=== PATIENT | male | born 1935 | race Caucasian/White ===

== ENCOUNTER 2024-02-15 19:25 | Observation (INO) | payer MEDICARE, BC, SELFPAY ==
[2024-02-15 14:50] VITALS: BP 137/84
[2024-02-15 16:03] VITALS: BP 130/82
--- NOTE | 2024-02-15 17:18 | ED.GENMED ---
History of Present Illness
General
Chief Complaint: Fall
Source: patient and family
Time Seen by Provider: 02/15/24 17:02
History of Present Illness
History of Present Illness:
88-year-old male presents emergency department in the presence of his daughter and son-in-law with whom he lives. Patient was at a vacation home at the [place], sleeping in a high bed after having several drinks, and fell out of bed on
evening. Family heard him fall, came to his aid, helped him get back up, assisted him to the bathroom, put him back to bed. Daughter did frequent checks on him throughout the night without incident. He woke the next morning without any
complaints acting his usual self. Throughout the weekend he was asymptomatic. Then, this morning approximately 5 AM, he tripped over a gate at a doorway that he forgot was there, causing him to hit his head, without loss of consciousness. He
reports a mild headache in the frontal area that is nearly resolved at this time. He denies associated neck pain, nausea, vomiting, numbness, tingling, focal weakness, diplopia. However, he does report feeling a little 'foggy'. He also notes a
history of a 'bad lens' in his left eye with waxing and waning intensity of difficulty seeing clearly associated with slight blurriness, which seems to be slightly worse today.
Past History
Past History
ED Past Medical History: GERD and HTN
ED Past Surgical History: Appendectomy, Cholecystectomy, Tonsilectomy and Other (eye)
Social History
Tobacco: Non-smoker
Alcohol: Occasional
Drug: None
Personal:
Living: with family
Phy Exam
Physical Exam
Physical Exam:
GENERAL: Alert , in no apparent distress
EYE: pupils reactive, right pupil slightly asymmetric but chronic and baseline postsurgery, no objective photophobia, EOMI, no nystagmus, visual treadwell intact throughout. No hyphema noted. There is a small amount of bruising noted at the superior
aspect of the right eyelid without laceration, bleeding, swelling or other abnormalities.
NECK: Supple, no significant adenopathy, no midline tenderness.
ENT: o/p clr, mmm, no tenderness to palpation of periorbital area, with the exception of eyelid as described no signs of head or facial injury noted on exam, no orona, no raccoon, etc.
CARDIAC: Regular rate and rhythm .
LUNGS: Clear breath sounds bilaterally, no acute respiratory distress, no wheezes/rales/rhonchi
ABDOMEN: Soft, without focal tenderness, no r/g, no cvat
NEUROLOGICAL: Alert and oriented, no focal neuro deficits, cyadmt-qn-aofs normal, motor 5 out of 5, sensory intact, cranial nerves II through XII intact
SKIN: Warm and dry, skin intact.
MUSCULOSKELETAL: No edema, well perfused.
PSYCH: Normal and appropriate interaction.
Course
Orders/Labs/Results
Orders:
Orders
02/15/24 14:[address] [CT Head W/o Iv Contrast] Urgent
Comment:
Reason For Exam: fall
02/15/24 19:11
Admit/Transfer Patient As Directed
Co-Sign Provider:
Level of Care: Observation services
Assign to:: Medical/Surgical
Physician / Group: hospitalist
Diagnosis: subdural hematoma
PRN Pain Medication Management As Directed
May give lesser potent ordered pain med per pt: Yes
preference::
Protocol:: Medication orders for pain may be administered in a
manner that supports deferring to patient preference
when the pt is:
- Requesting an ordered lesser potent pain medication.
Least to most potent pain medications are defined
as: acetaminophen < NSAID < tramadol < opioids
(morphine, oxycodone, hydromorphone).
- Requesting a lesser dose of the same medication IF
ORDERED.
- Requesting a less intrusive route of administration
if both routes are prescribed by the provider (PO <
IV).
02/15/24 19:12
Code Status As Directed
Resuscitation Status: Full Code
02/15/24 20:00
Famotidine [Pepcid] 40 mg PO BID
02/15/24 22:00
Gabapentin [Neurontin] 300 mg PO TID
02/16/24 07:00
Levothyroxine [Synthroid] 150 mcg PO DAILY AT 0700
02/16/24 08:00
Amlodipine [Norvasc] 5 mg PO DAILY
Cyanocobalamin [Vitamin B-12] 1,000 mcg PO DAILY
Pantoprazole [Protonix] 40 mg PO DAILY
Rosuvastatin Calcium [Crestor] 5 mg PO DAILY
cholecalciferol (vitamin D3) 1,000 mcg PO DAILY
Vital Signs
Initial and Last Documented VS:
Initial Vital Signs
Temp Pulse Resp BP Pulse Ox
98.4 F 67 18 137/84 98
02/15/24 14:50 02/15/24 14:50 02/15/24 14:50 02/15/24 14:50 02/15/24 14:50
Last Documented Vital Signs
Temp Pulse Resp BP Pulse Ox
98.4 F 64 13 130/82 98
02/15/24 14:50 02/15/24 16:03 02/15/24 16:03 02/15/24 16:03 02/15/24 19:03
*Critical Care Note
Total Time (30-74mins, 75-104mins- exclusive of procedures): Not Applicable
Update Note
Update Note:
Patient presents to the Emergency Department with __headache, foggy feeling status post fall
Number and Complexity of Problems Addressed at the Encounter
� Chronic conditions affecting care:
� Acute Exacerbation and/or Progression of Chronic Illness:
� Differential Diagnosis includes: But not limited to concussion, intracranial bleed/subdural, etc.
Amount and/or Complexity of Data to be Reviewed and Analyzed
� I performed an independent evaluation of and my interpretation is:
EKG:
CT:Prominence of subarachnoid cisterns overlying both cerebral hemispheres, greatest in the frontal lobes. This is most likely on the basis of atrophy.
Bilateral subdural hygromas could be considered as a differential consideration, particularly as there is no comparison examination available. No evidence for significant mass effect, as the sulci remain well-defined.
Depending on clinical symptoms, consideration could be given to follow-up CT or MRI evaluation to assess for interval change.
2 mm metallic density within the soft tissues anterior to the midline frontal sinus, probably a small metallic foreign body.
Xrays:
Laboratory Studies:
Other:
� Review of other/old records reveals:
� Clinical information was obtained by an independent historian: Daughter and son-in-law who are at bedside
� Prescriptions/Medications Considered but not given:
� Further testing considered but not performed:
Risk of Complications and/or Morbidity or Mortality of Patient Management
� Social determinants of health affecting care:
� Discussion with other providers (PCP, Hospitalists, Consultants, etc):
� Escalation of care including admission/observation vs risk of discharge considered: No change to patient's gait, patient not confused, no complaints of headache at this time. Exam as noted. CT noted, case discussed with .
Jamie Paulson from neurosurgery at [facility] has reviewed patient's CT.
7:22 PM after consultation with Dr. Jamie Paulson including review of CAT scan that I sent to him via [facility] text, he suspects a very tiny acute on chronic subdural, recommendation is observation overnight with repeat CT in 6 hours. Case discussed
with hospitalist and family and patient updated. Patient is neurologically intact. I did recommend to family that upon discharge he see [facility] promptly regarding his left eye symptoms. Incidental small metal noted in the soft tissue likely
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
ED Attending Note
-
Portions of this chart may have been created with voice recognition software.� Occasional wrong word or��sound alike� substitutions may have occurred due to the inherent limitations of voice recognition software.
Discharge Plan
Departure
Patient Disposition: Admit
Date of Disposition: 02/15/24
Time of Disposition: 19:23
Admit to: Telemetry
Presentation/result/management discussed w/ accepting MD/DO: Hospitalist
Discharge Problem:
Acute subdural hematoma
Prescriptions:
No Action
pantoprazole 40 mg tablet,delayed release (DR/EC)
40 mg PO DAILY
gabapentin 300 mg capsule
300 mg PO TID
rosuvastatin 5 mg tablet
5 mg PO DAILY
famotidine 40 mg Tablet
40 mg PO BID
cyanocobalamin (vitamin B-12) [Vitamin B-12] 1,000 mcg Tablet
1,000 mcg PO DAILY
levothyroxine [Synthroid] 150 mcg Tablet
150 mcg PO DAILY AT 0700
cholecalciferol (vitamin D3) 100 mcg (4,000 unit) Capsule
1,000 mcg PO DAILY
amlodipine [Norvasc] 5 mg tablet
5 mg PO DAILY Qty: 30 0RF
Referrals:
Hai Lee MD [Family Provider] -
Interventions
Interventions:
*Risk Screen - Suicide Last Done: 02/15/24 14:50
*General Assessment Last Done: 02/15/24 14:50
*Neglect/Abuse Screening Last Done: 02/15/24 14:50
*ED COVID-19 Vaccine History Last Done: 02/15/24 16:03
ED-Musculoskeletal Assessment Last Done: 02/15/24 16:03
ED- Neurological Assessment Last Done: 02/15/24 16:03
ED-Skin Assessment Last Done: 02/15/24 16:03
Discharge Date and Time
Print Language: FRENCH
[2024-02-15 19:07] VITALS: BMI 21.9
--- NOTE | 2024-02-15 19:11 | EDRN ---
Report received, patient aware results are back and waiting for to come speak with them about results and plan.
--- NOTE | 2024-02-15 19:19 | EDRN ---
Dr. Alfaro at bedside with patient going over plan for admission.
--- NOTE | 2024-02-15 19:41 | HPS.HSE ---
Family Physician
-
Family Physician: Hai Lee
Chief Complaint
-
Fall
History of Present Illness
This is a 88-year-old with past medical history of hypertension, GERD, hyperlipidemia, hypothyroid who presents to the emergency department following 2 falls.
Patient reported having more than usual amount of alcohol 2 nights ago. When he went to bed he ended up rolling on the bed and falling to the floor. He reports that he was on a bed that was not his usual pain and was at a higher height. Family
had denies and came to see him. They evaluated him and he was neurologically intact denied having headache nausea or vomiting and was able to perform his usual activities. He went back to bed and was otherwise asymptomatic. Later on the patient
tripped on an object in the room and fell again. This time he complained of some headache and was brought to the emergency department. Headache improved by time he arrived to the emergency department but it reoccurred again while in the ED.
Patient is not on any anticoagulations or antiplatelet therapy.
In the emergency department he was afebrile hemodynamically stable and in no acute distress. He had a CT of the head. There was bilateral subdural hygromas could be considered as a differential consideration, particularly as there is no comparison
examination available. No evidence for significant mass effect, as the sulci remain well-defined. 2 mm metallic density within the soft tissues anterior to the midline frontal sinus, probably a small metallic foreign body. This case was discussed
with neurosurg and recommended a follow up CT in 6 hours.
Medical History
Past Medical History
Past Medical History: Reports GERD, HTN, Hypercholesterolemia and Hypothyroidism
Additional Past Medical History:
Dementia
Past Surgical History: Reports None and Other
Social History
Tobacco: Non-smoker
Alcohol: Occasional
Drug: None
Personal:
Living: With Family
Employment: Retired
Family History
Family History: Not pertinent
Allergies / Home Medications
Allergies reflects when Allergies were last updated in [employer] [facility].
Home Medications with original date entered in [employer] [facility]
Allergy/Medication List:
Allergies
Allergy/AdvReac Type Severity Reaction Status Date / Time
milk Allergy Mild Does not Verified 02/15/24 14:50
settle
well in
stomach
aspirin Allergy Nausea / Verified 02/15/24 14:50
Vomiting
Home Medications
Lexapro 10mg tablet, 10mg PO Daily
levothyroxine 150 mcg tablet (Synthroid) 150 mcg PO DAILY AT 0700 Thyroid 08/18/22
pantoprazole 40 mg tablet,delayed release 40 mg PO DAILY Gastrointestinal issue 08/18/22
rosuvastatin 5 mg tablet 5 mg PO DAILY High cholesterol 08/18/22
amlodipine 5 mg tablet (Norvasc) 5 mg PO DAILY #30 tabs 08/20/22
Review of Systems
-
History Source: Patient
Constitutional: Reports No Symptoms
EENT: Reports No Symptoms
Respiratory: Reports No Symptoms
Cardiac: Reports No Symptoms
Abdomen/GI: Reports No Symptoms
: Reports No Symptoms
Musculoskeletal: Reports No Symptoms
Skin: Reports No Symptoms
Neurological: Reports Headache
Endocrine: Reports No Symptoms
Hematologic/Lymphatic: Reports No Symptoms
Psych: Reports No Symptoms
Physical Exam
Vital Signs
Vital Signs
Temp Pulse Resp BP Pulse Ox
98.4 F 64 13 130/82 98
02/15/24 14:50 02/15/24 16:03 02/15/24 16:03 02/15/24 16:03 02/15/24 19:03
Physical Exam
HEENT: NormoCephalic, Anicteric, Moist mucous membranes, Atraumatic and Other (anisocoria, non-reactive right pupil)
Respiratory: Clear
Cardiac: S1/S2 and Regular Rhythm
Breast: Deferred by me
GI: Soft, Non Tender, Non Distended and Normal Bowel Sounds
Rectal: Deferred by Provider
Genito-urinary: Deferred by me
Musculoskeletal: No Clubbing, No Cyanosis and No Edema
Skin: Warm
Neuro: AO x 3, No Motor Deficits, Nonfocal/grossly intact and No Sensory Deficits
Hematologic/Lymphatic: No Lymphadenopathy
Psych: Calm
Data Reviewed
-
CT Scan: Report Reviewed by me
Impression/Plan
-
IMPRESSION:
Mechanical fall with possible small subdural hematoma. Patient is not on any anticoagulation. Does not take aspirin. He is neurologically intact. He denies any nausea or vomiting. Currently does have a headache.
PLAN:
1. Fall - Possible SDH vs hygroma. 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 No focal deficits. Anisocoria with non-reacting, mid-dilated right pupil.
- admit to med/surg
- repeat CT scan in 6 hours
- no AC
- monitor for nausea/vomiting/headache
2. Anisocoria - Patient with known cataracts and poor vision in both eyes, stating that he has more blurry vision in the left eye. Recent cataract surgery on the right eye. No diploplia. EOMI. No conjunctivitis or obvious cornial anomally.
Suspect secondary to prior surgery.
- will obtain facial bone CT with repeat head CT.
- f/u with outpatient opthalmology
3. HTN/HLD
- continue amlodipine & rosuvostatin
4. Hypothyroid
- continue levothyroxine
5. Memory loss - progressive over the last 2 years, patient and pmd aware
- follow up as outpatient
DVT PPX - SCDs
Code Status - DNR
--- NOTE | 2024-02-15 20:01 | PHANOTE ---
med rec note- patient having trouble with med names patient has no ecw just pharmacy records will following with family and pcp friday
--- NOTE | 2024-02-15 20:01 | EDRN ---
Patient provided with a lunchbox to eat and a urinal if he needs, aware he will be going upstairs shortly, report was sent.
--- NOTE | 2024-02-15 20:40 | PTCARENOTE ---
Pt rec'd to floor from ED awake and alert. Able to ambulate from hallway to bed w/o difficulty; uses SPC. Denies any dizziness. Gait steady. Denies h/a or other pain at this time. Recalls events leading up to hospitalization, but is very forgetful
and not able to recall current year or current location, where he lives, etc. Voices frustration over memory loss.
[2024-02-15 20:46] VITALS: BP 166/77; BMI 21.4
[2024-02-15] MEDS: TYLENOL 1000 MG PO (21:20)
--- NOTE | 2024-02-15 21:30 | PTCARENOTE ---
Pt instructed to get OOB only w/assistance and showed use of call triplett. Pt has demonstrated severe memory loss and has not recalled all instructions given to him, therefore bed alarm applied to bed for safety.
[2024-02-15 23:32] VITALS: BP 126/82
--- NOTE | 2024-02-16 00:45 | PTCARENOTE ---
Zarina RIVAS notified of results of repeat Ct scan. Labs ordered for am.
[2024-02-16] MEDS: SYNTHROID 150 MCG PO (06:17)
[2024-02-16 07:35] VITALS: BP 149/77
[2024-02-16] MEDS: LEXAPRO 10 MG PO (07:48)
[2024-02-16] MEDS: CRESTOR 5 MG PO (07:48)
[2024-02-16] MEDS: PROTONIX 40 MG PO (07:48)
[2024-02-16] MEDS: NORVASC 5 MG PO (07:48)
[2024-02-16 08:24] LABS: Hemoglobin 13.7 g/dL (13.0-18.0); Mean Corp Hgb Conc. 34.3 g/dL (33.0-37.0); Mean Corpuscular Hgb 29.8 pg (27.0-31.0); Mean Corpuscular Volume 87.1 fL (80.0-94.0); Mean Platelet Volume 9.7 fL (7.4-10.4); Platelet Count 225 10^3/uL (130-400); Red Blood Cell Count 4.59 10^6/uL (4.70-6.10); Red Cell Dist. Width 13.7 % (11.5-14.5); White Blood Cell Count 5.7 10^3/uL (4.8-10.8)
[2024-02-16 09:46] LABS: Blood Urea Nitrogen 20 mg/dl (9-20); Calcium 10.6 mg/dl (8.4-10.2); Carbon Dioxide 25 mmol/L (22-30); Chloride 102 mmol/L (98-107); Estimated Creatinine Clearance 50 ml/min; Glucose 117 mg/dl (70-99); Potassium 4.4 mmol/L (3.5-5.1); eGFR > 60.00
[2024-02-16 10:01] LABS: Sodium 140 mmol/L (135-145)
[2024-02-16 10:35] VITALS: BP 102/68
[2024-02-16] MEDS: TYLENOL 650 MG PO (10:35)
[2024-02-16 12:27] VITALS: BMI 21.4
--- NOTE | 2024-02-16 14:36 | W.PN.HOSP.TC ---
Today's Communication/Plan
-
Follow-up neurosurgery recommendations
PT/OT eval
Neurochecks
Assessment / Plan
Assessment / Plan
#Acute subdural hematoma
#Fall at home times
-Repeat CT after 6 hours showed 2 mm right frontotemporal SDH
-No signs of midline shift or other complications related to bleed
-Remains neuro cognitively intact
-Holding chemical DVT prophylaxis
-Continue with neurochecks
-Neurosurgery consulted
-Consult PT/OT
#Anisocoria
-Has a stable pupillary defect on the right
-Will need to follow-up outpatient with ophthalmology
#HTN
-No known hypertensive systemic disease
-Home medications include amlodipine
#HLD
-No known ASCVD history, currently on rosuvastatin
#Hypothyroidism
-Home medication includes levothyroxine
-Appears stable
#Memory loss
-Should have follow-up as outpatient for neurocognitive eval
DVT prophylaxis: SCDs
Diet: regular
CODE STATUS: DNR
Anticipated Discharge: 24 - 48 hours
Subjective/Interval History
-
Date of Service: February 16, 2024
Objective Data
-
Labs:
Laboratory Results
02/16/24 02/16/24
07:35 09:18
WBC 5.7
Hgb 13.7
Hct 40.0
Plt Count 225
Sodium Cancelled 140
Potassium Cancelled 4.4
Chloride Cancelled 102
Carbon Dioxide Cancelled 25
BUN Cancelled 20
Creatinine Cancelled 0.9
Glucose Cancelled 117 H
Calcium Cancelled 10.6 H
Vital Signs:
Vital Signs
Temp Pulse Resp BP Pulse Ox
97.8 F 64 18 102/68 98
02/16/24 10:35 02/16/24 10:35 02/16/24 10:35 02/16/24 10:35 02/16/24 12:43
I&O
02/15/24 02/16/24 02/17/24
06:59 06:59 06:59
Intake Total 0 / 0
Balance 0 / 0
[2024-02-16 15:15] VITALS: BP 120/78
--- NOTE | 2024-02-16 15:25 | CON.NS ---
Chief Complaint
-
s/p fall
History of Present Illness
This is an 88 y/o M who presented to the ED for evaluation after he tripped and hit his head. He reports he was at the [facility] this past week and was sleeping in a higher bed than normal. He fell out of bed about 3 days ago after having a
little too much to drink. Family heard him and went to evaluate. He did not have LOC and his family checked on him through the night. He did not have any further issues. Yesterday am, he tripped over a gate in the doorway that he forgot was there
and hit his head on the door frame. He had a mild headache after hitting his head and felt a little foggy. His family brought him in for evaluation.
Patient seen and examined. Grandson at bedside. He states he has an occasional headache since the fall out of bed. He and his grandson deny him taking any AC/AP. He does admit he will have too much to drink at times. He denies any new N/V, weakness,
numbness/tingling.
Review of Systems
-
A 10 point ROS including HEENT,cardiac,respiratory,GI,, integumentary, heme/onc,endocrine, psych, musculoskeletal has been performed and is negative except for pertinent positives as noted in the HPI above.
Medical History
Past Medical History
Additional Past Medical History:
Past Medical History
Past Medical History: Reports GERD, HTN, Hypercholesterolemia and Hypothyroidism
Additional Past Medical History:
Dementia
Past Surgical History: Reports None and Other
Social History
Tobacco: Non-smoker
Alcohol: Occasional
Drug: None
Personal:
Living: With Family
Employment: Retired
Family History
Family History: Reviewed & Not Pertinent
Medication and Allergies
Home Medications
Home Medications
�Medication �Instructions �Recorded
levothyroxine 150 mcg tablet 150 mcg PO DAILY AT 0700 Thyroid 08/18/22
(Synthroid)
pantoprazole 40 mg tablet,delayed 40 mg PO DAILY Gastrointestinal 08/18/22
release issue
rosuvastatin 5 mg tablet 5 mg PO DAILY High cholesterol 08/18/22
amlodipine 5 mg tablet (Norvasc) 5 mg PO DAILY #30 tabs 08/20/22
escitalopram oxalate 10 mg tablet 10 mg PO DAILY Depression 02/15/24
(Lexapro)
Allergies
Allergies
Allergy/AdvReac Type Severity Reaction Status Date / Time
milk Allergy Mild Does not Verified 02/15/24 14:50
settle
well in
stomach
aspirin Allergy Nausea / Verified 02/15/24 14:50
Vomiting
Physical Exam
-
Exam:
Patient Awake, alert and Oriented xs 3
CN 2-12 grossly intact
bruising on left side of face and arm
speech: clear/fluent
motor: DE LA O xs 4, absent drift bilaterally
sensation intact to crude touch
no swelling/edema
Imaging:
CT Head imaging and report personally reviewed
IMPRESSION:
Probable small subdural hematoma in the right frontal temporal region, measuring 2 mm in thickness, stable from earlier examination of February 15, 2024.
Prominence of extra-axial CSF overlying both cerebral hemispheres, greatest in the frontal lobes, stable from earlier exam. This could be on the basis of atrophy, but could also represent stable subdural hygromas.
There is no midline shift.
Problems
-
Problem Status Onset Code
Acute subdural hematoma S06.5XAA
Assessment / Plan
-
88 y/o M s/p fall with small right SDH stable xs 2 CT scans
--imaging reviewed by and discussed with attending. No acute neurosurgical intervention indicated
--repeat CTH for change in exam only
--follow up in [address] head prior to appt.
--discussed results and recommendations with patient's grandson at bedside. All questions anwered.
--Neurosurgery to sign off
--okay for dvt ppx
--patient discussed with Dr. Mcdonald
--- NOTE | 2024-02-16 17:20 | CM ---
Alert awake oriented patient who lives with his dgt Nataly who lives in a 1 story home with 1 step to enter and bed and bathroom on first floor. He is independent in all activities of daily living.He was offered VN he declined need.[facility] letter
given explained signed on chart.
No VN hx / No SNF history
Pharmacy [facility]
PCP DR Lee
PLAN Home Declined VN
[2024-02-16 23:09] VITALS: BP 141/82
[2024-02-17] MEDS: SYNTHROID 150 MCG PO (05:59)
[2024-02-17 07:07] VITALS: BP 128/78
--- NOTE | 2024-02-17 07:26 | PTCARENOTE ---
Patient became agitated and angry x 2 this shift regarding bed alarm and ambulating with assistance. Able to reorient and redirect to have patient agree to utilize fall precaution protocols. Bed alarm in place.
[2024-02-17] MEDS: CRESTOR 5 MG PO (09:03)
[2024-02-17] MEDS: LEXAPRO 10 MG PO (09:04)
[2024-02-17] MEDS: NORVASC 5 MG PO (09:04)
[2024-02-17] MEDS: PROTONIX 40 MG PO (09:04)
[2024-02-17] MEDS: TYLENOL 650 MG PO (09:46)
[2024-02-17 09:49] VITALS: BP 156/82; PULSE 67; O2SAT 99
[2024-02-17 09:53] VITALS: BP 156/82; PULSE 63; O2SAT 98
--- NOTE | 2024-02-17 11:41 | W.PN.HOSP.TC ---
Today's Communication/Plan
-
Discharge
Assessment / Plan
Assessment / Plan
#Acute subdural hematoma
#Fall at home times
-Repeat CT after 6 hours showed 2 mm right frontotemporal SDH
-No signs of midline shift or other complications related to bleed
-Remains neuro cognitively intact
-Holding chemical DVT prophylaxis
-Continue with neurochecks
-Neurosurgery consulted
-Consult PT/OT
#Anisocoria
-Has a stable pupillary defect on the right
-Will need to follow-up outpatient with ophthalmology
#HTN
-No known hypertensive systemic disease
-Home medications include amlodipine
#HLD
-No known ASCVD history, currently on rosuvastatin
#Hypothyroidism
-Home medication includes levothyroxine
-Appears stable
#Memory loss
-Should have follow-up as outpatient for neurocognitive eval
DVT prophylaxis: SCDs
Diet: regular
CODE STATUS: DNR
Anticipated Discharge: Today
Subjective/Interval History
-
Date of Service: February 17, 2024
Seen and examined at bedside. No acute events reported overnight. AFVSS this morning.
He mentions slight blurriness/darkness to vision from the right eye that is different from yesterday. Ordered a repeat CT head that did not show any changes to SDH or otherwise
He otherwise denies all acute complaints
Objective Data
-
Vital Signs:
Vital Signs
Temp Pulse Resp BP Pulse Ox
98.2 F 64 22 128/78 97
02/17/24 07:07 02/17/24 07:07 02/17/24 07:07 02/17/24 07:07 02/17/24 07:07
I&O
02/16/24 02/17/24 02/18/24
06:59 06:59 06:59
Intake Total 0 / 0 640 / 640
Balance 0 / 0 640 / 640
Review of Systems
-
History Source: Patient
All other systems: Reviewed and negative
Physical Exam
-
General: Well Nourished, No Apparent Distress and Comfortable
HEENT: Normocephalic, Atraumatic, Moist Mucous Membranes, PERRLA and Other (Anisocoria right pupil)
Respiratory: Clear to Auscultation and Wheezes
Cardiac: Regular Rhythm and S1/S2
GI: Soft, Nontender, Nondistended and Normal Bowel Sounds
Musculoskeletal: No Clubbing, No Cyanosis and No Edema
Skin: Warm and Dry; Negative Rash
Neuro: AO x 3, Nonfocal/Grossly Intact and Central Nerve's Intact
Psych: Calm
Data Reviewed
-
CT Scan: Report Reviewed by me and Discussed with Patient
Labs: Labs Reviewed by me and Discussed with Patient
--- NOTE | 2024-02-17 11:46 | W.DCSUMMARY ---
Discharge Summary
Discharge Data
Date of Admission: 02/15/24
Date of Discharge: 02/17/24
-
Pending Results: No
Hospital Course
88-year-old male with GERD, hypothyroidism, HTN, HLD, alcohol use that presented after 2 mechanical falls at home while using alcohol. On arrival CT head showed potential small 2 mm right-sided subdural hematoma at the frontoparietal region. CT
scan x 2 were obtained subsequently that did not show any signs of worsening. No evidence of midline shift, mass effect or other acute abnormality seen on imaging. Was evaluated by neurosurgery who recommended outpatient follow-up in their office.
PT/OT evaluated patient, determined no home needs were necessary.
Patient discharged with neurosurgery referral. Provided a prescription for CT head without contrast that should be obtained prior to office visit with neurosurgery
Discharge Plan
-
Patient Disposition: Home (Routine Discharge)
Discharge Diagnosis/Procedures: Subdural hematoma
Mechanical fall at home
Condition: Good
Diet: No restrictions
Activity: No restrictions
Additional Activity: Caution for falls if consuming alcohol
Driving Restrictions: No driving for 24 hours
Bathing Restrictions: None
Others Tests: CT head- obtain CT head prior to appointment.
Activity Restrictions/Additional Instructions:
You may take Tylenol for headache. Do not take NSAIDs (Aleve, motrin, advil, ibuprofen, aspirin) until seen in follow up by Neurosurgery.
Instructions: Subdural Hematoma (DC)
Referrals:
Hunter Mcdonald, [Active] - (Follow up in ~2 weeks regarding right subdural hematoma. Obtain CT head prior to appointment. )
Hai Lee MD [Family Provider] -
Additional Discharge Medication Instructions: No medication changes
Prescriptions:
Continued
pantoprazole 40 mg tablet,delayed release (DR/EC)
40 mg PO DAILY
rosuvastatin 5 mg tablet
5 mg PO DAILY
levothyroxine [Synthroid] 150 mcg Tablet
150 mcg PO DAILY AT 0700
amlodipine [Norvasc] 5 mg tablet
5 mg PO DAILY Qty: 30 0RF
escitalopram oxalate [Lexapro] 10 mg Tablet
10 mg PO DAILY
Discharge Orders:
Discharge Patient (As Directed); Ordered 02/17/24
Ordered By: Gaurav Leung
Discharge Date and Time
Print Language: UKRAINIAN
[2024-02-17 12:42] VITALS: BP 120/80
--- NOTE | 2024-02-17 12:56 | CM ---
MD entered order for discharge.
Pt said he was ready for dc.
Daughter here to drive him home.Lives with dgt.
Offered vn he declined need.
PLAN Home no needs
--- NOTE | 2024-02-17 13:00 | PTCARENOTE ---
rn health service coordinator- Daughter and patient state that he takes flomax for his prostate. It was not on his dc/ instructions. Demar texted as per Dr Leung who indicated that it was not on his home list, but indicated that patient should continue
[employer] at home.
== END 2024-02-17 12:51 | disposition home or self-care (01) ==
LOC: 4 EAST ACU 19:25
PROVIDERS: Registered Nurse; ADMITTING PHYSICIAN Internal Medicine; ATTENDING PHYSICIAN Internal Medicine; EMERGENCY PHYSICIAN Emergency Medicine; FAMILY PHYSICIAN Family Medicine; OTHER PHYSICIAN Neurological Surgery
DX: S06.5X0A Traumatic subdural hemorrhage without loss of consciousness, initial encounter (principal); R51.9 Headache, unspecified; K21.9 Gastro-esophageal reflux disease without esophagitis; H57.02 Anisocoria; H53.8 Other visual disturbances; I10 Essential (primary) hypertension; W06.XXXA Fall from bed, initial encounter; Y93.89 Activity, other specified; Y92.003 Bedroom of unspecified non-institutional (private) residence as the place of occurrence of the external cause; E03.9 Hypothyroidism, unspecified; E78.00 Pure hypercholesterolemia, unspecified; Z88.6 Allergy status to analgesic agent; Z91.011 Allergy to milk products; Z79.890 Hormone replacement therapy; Z66 Do not resuscitate; Z90.49 Acquired absence of other specified parts of digestive tract
CPT/HCPCS: 70450; 80048; 85027; 97116; 97163; 97167; 99285; G0378

== ENCOUNTER → 2024-02-25 07:00 | Outpatient (REF) | payer MEDICARE, BC, SELFPAY | LOC: RAD 07:00 | PROVIDERS: ATTENDING PHYSICIAN Internal Medicine; FAMILY PHYSICIAN Family Medicine | DX: I62.01 Nontraumatic acute subdural hemorrhage (principal) | CPT/HCPCS: 70450 ==

== ENCOUNTER 2024-03-19 10:53 | Emergency (ER) | payer MEDICARE, BC, SELFPAY ==
[2024-03-19 10:56] VITALS: BP 128/74
[2024-03-19 11:13] VITALS: BMI 21.6
[2024-03-19 11:16] VITALS: BP 147/83
[2024-03-19 11:41] LABS: INR 1.03; PT 13.8 Sec (11.4-14.6)
[2024-03-19 11:42] LABS: Glucose - Point of Care 86 mg/dl (70-99)
[2024-03-19 11:46] LABS: % Basophils 0.8 % (0-2); % Eosinophils 1.4 % (0-6); % Immature Granulocytes 0.3 % (0-0.5); % Lymphocytes 35.9 % (20.5-51.1); % Monocytes 8.6 % (1.7-9.3); Absolute Basophils 0.1 10^3/uL (0-0.2); Absolute Eosinophils 0.1 10^3/uL (0-0.7); Absolute Lymphocytes 2.3 10^3/uL (1.2-3.4); Absolute Monocytes 0.6 10^3/uL (0.1-0.6); Absolute Neutrophils 3.4 10^3/uL (1.4-6.5); Hematocrit 43.1 % (39.0-52.0); Hemoglobin 14.4 g/dL (13.0-18.0); Mean Corp Hgb Conc. 33.4 g/dL (33.0-37.0); Mean Corpuscular Hgb 30.4 pg (27.0-31.0); Mean Corpuscular Volume 91.1 fL (80.0-94.0); Mean Platelet Volume 9.1 fL (7.4-10.4); Nucleated Red Blood Cells % 0 % (-); Platelet Count 280 10^3/uL (130-400); Red Blood Cell Count 4.73 10^6/uL (4.70-6.10); Red Cell Dist. Width 13.3 % (11.5-14.5); White Blood Cell Count 6.4 10^3/uL (4.8-10.8)
[2024-03-19 11:47] LABS: ALT (SGPT) 13 U/L (0-50); AST (SGOT) 19 U/L (17-59); Albumin 4.4 g/dl (3.5-5.0); Alkaline Phosphatase 97 U/L (38-126); Blood Urea Nitrogen 18 mg/dl (9-20); Calcium 10.2 mg/dl (8.4-10.2); Carbon Dioxide 24 mmol/L (22-30); Chloride 102 mmol/L (98-107); Estimated Creatinine Clearance 43 ml/min; Glucose 102 mg/dl (70-99); Potassium 4.4 mmol/L (3.5-5.1); Sodium 138 mmol/L (135-145); Total Bilirubin 0.4 mg/dl (0.2-1.3); Total Protein 7.3 g/dl (6.3-8.2); eGFR > 60.00
[2024-03-19 12:00] VITALS: BP 102/72
--- NOTE | 2024-03-19 12:39 | CON.NEURO4 ---
Addendum entered and electronically signed by Jimbo Haynes MD 03/19/24 17:24:
Studies reviewed.
I have personally examined the patient. I reviewed and agree with the SURVEILLANCE OPERATOR's Note.
My addenda:
Awake, alert, interactive. No acute distress.
Speech intact.
Follows 2-step requests w/ difficulty. No tremor.
Extra-ocular movements grossly intact.
Facial movements full and symmetric. Hearing intact to normal conversational volume.
Normal UE movements bilaterally.
Neck: full ROM.
Chest: no dyspnea
Heart: no JVD
Ext: (-) Clubbing, (-) Cyanosis, (-) Edema
IMPRESSIONS/RECOMMENDATIONS:
Abrupt onset of gait and speech changes. Patient has had recurrent difficulty with speech changes over the last 48 hours each lasting approximately 15 minutes before resolution
Most likely secondary to fluid changes associated with known subdural hematoma as well as postconcussive syndrome. The patient's prior significant alcohol intake and potential withdrawal from same may also be producing cognitive changes leading to
symptoms
Supportive care
Patient is not on medications which need withheld meaning he is not taking antiplatelet or anticoagulant medications at this time
Continue patient's usual medication regimen
Should the patient redevelop symptomatology, return to this hospital's emergency department may be of benefit
No indication at this time for neurosurgical intervention
Patient in the future may benefit from thiamine replacement
D/W patient / family
All questions answered.
Will continue to follow patient as needed.
Original Note:
Consultation - Neurology 4
-
CONSULTING PHYSICIAN:Dr. iJmbo Hollingsworth
REFERRING PHYSICIAN: Dr. Phelps
DICTATED BY: EVELYN Harrington
DATE/TIME OF REQUEST: 03/19/2024
DATE/TIME OF CONSULTATION: 03/19/2024
Reason for Consultation: stroke alert
History of Present Illness:
This is an 88-year-old male patient with past medical hypertension, GERD, hyperlipidemia, hypothyroid who presented to the emergent department today 03/19/2024 after daughter noted changes in speech and gait. He was seen in the emergency
department in 02/15/2024 after he fell at his vacation home in [place]. He went to bed after having a few drinks and fell out of on 02/12/2024. He woke up the following morning and seemed himself. On 02/15/2024 he had additional fall and again
hit his head. Prompting his daughter to bring him to the ER. He reported a mild headache in the frontal area. He denied any neck pain, nausea, vomiting, numbness, tingling, focal weakness or diplopia. 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 He does follow-up with [facility]. On 02/15/2024 he did admit to being foggy.
CT head 02/15/2024 at 1750
Prominence of subarachnoid cisterns overlying both cerebral hemispheres, greatest in the frontal lobes. This is most likely on the basis of atrophy.
Bilateral subdural hygromas could be considered as a differential consideration, particularly as there is no comparison examination available. No evidence for significant mass effect, as the sulci remain well-defined.
Depending on clinical symptoms, consideration could be given to follow-up CT or MRI evaluation to assess for interval change.
2 mm metallic density within the soft tissues anterior to the midline frontal sinus, probably a small metallic foreign body.
CT head 02/15/2024 at 2330
Probable small subdural hematoma in the right frontal temporal region, measuring 2 mm in thickness, stable from earlier examination of February 15, 2024.
Prominence of extra-axial CSF overlying both cerebral hemispheres, greatest in the frontal lobes, stable from earlier exam. This could be on the basis of atrophy, but could also represent stable subdural hygromas.
There is no midline shift.
CT head 02/17/2024
Thin right frontal and anterior temporal subdural hematoma, stable from examination on February 15, 2024.
Prominence of extra-axial CSF overlying the hemispheres, especially in the region of frontal lobes, also stable. This may be on the basis of atrophy, although bilateral subdural hygromas are also possible.
No mass effect with no midline shift.
He was evaluated by neurosurgery who felt subdural was stable and needed follow up as an outpatient.
Repeat CT head 02/25/2024
Findings consistent with evolving subacute subdural hemorrhage.
Stable chronic hypodense collections of CSF attenuation are noted immediately adjacent to the inner table, bilaterally, left greater than right, such as chronic subdural hematoma or hygroma. Unchanged.
Today 03/18/2024, his daughter reports that he has had transient changes in speech over the past 2-3 days at night before bed. This morning his daughter witnessed patient with trouble finding his words, getting lost in the kitchen and felt his
balance was not at baseline, she felt he needed to be evaluated urgently. Symptoms have improved since arrival tot he ER. His daughter reports that he had had a decline in memory since the spring after the of his and moving in with his
daughter. She reports he has been able to complete most of his own ADL's and had been driving up until a month ago when his vision seemed to have gotten worse. He had not had any fender benders or episodes of getting lost. He denies any acute
complaints. He denies any dizziness, weakness, numbness or tingling. He denies any headache. He does admit to changes in memory.
Past Medical History: GERD, hypertension, hypothyroid, hyperlipidemia,left eye vision changes
Surgical History: Appendectomy,cholecystectomy,tonsillectomy
Family History: reviewed and non-pertinent
Social History: lives with family, , non-smoker, ETOH use socially
Allergies: see below
Home Medications: see below
Review of Symptoms:
Patient denies any fever, headache, chest pain, shortness of breath, GI or symptoms.
Vital Signs: see below
Physical Exam:
The patient is afebrile, heart sounds S1 and S2 are regular and chest is clear to auscultation bilaterally.
Neurologic Examination:
The patient is awake, alert and oriented x 3, needs . He is able to follow commands and answer most questions appropriately. There is no aphasia or dysarthria. On cranial nerve assessment, Left pupil was 1.5 mm right pupil was 2.5 mm round and
reactive to light and accommodation. Visual treadwell are full. Extraocular movements are intact. Tends to close left eye d/t blurred vision, but can open fully. Facial sensations are intact and bilaterally symmetrical, there is no facial asymmetry.
Hearing is intact bilaterally to normal conversation volume. Tongue palate and uvula are midline. Sternocleidomastoid strengths are full bilaterally. Motor strengths are 5/5 bilateral upper and lower extremities on medical research [place] scale.
There is no drift or involuntary movement noted. Deep tendon reflexes are 2+ bilateral upper and lower extremities and Babinski is absent bilaterally. Sensations of touch and temperature and vibration are intact and bilaterally symmetrical. There
was no extinction noted on double simultaneous stimulation. Coordination is intact by finger to nose bilaterally.
Lab Results: see below
Neuro Imaging: see HPI
CT head today, formal report pending
Impression:
BRENDON GARCIA is a 89 year old M who has presented to the hospital with speech and gait changes.
Differentials for the patient's presentation include:
Post-concussive syndrome
Exacerbation of underlying dementia
increased fluid d/t subdural hematoma
metabolic disturbance
Recommendations:
-CT head pending
-would benefit from outpatient MRI brain, no need for further imaging at this time
-will order labs for additional possible metabolic causes
-would benefit from outpatient neurologic evaluation and neuropsychological testing, has outpatient appointment with neurology
-will benefit from outpatient PT/OT and speech
-should follow up with neurosurgery as planned
-should avoid any NSAIDS or antiplatelets
Discussed patient care with Dr. Phelps, nursing, patient, family and Dr. Haynes
Medication and Allergies
Home Medications
Home Medications
�Medication �Instructions �Recorded
levothyroxine 150 mcg tablet 150 mcg PO DAILY AT 0700 Thyroid 08/18/22
(Synthroid)
pantoprazole 40 mg tablet,delayed 40 mg PO DAILY Gastrointestinal 08/18/22
release issue
rosuvastatin 5 mg tablet 5 mg PO DAILY High cholesterol 08/18/22
amlodipine 5 mg tablet (Norvasc) 5 mg PO DAILY #30 tabs 08/20/22
escitalopram oxalate 10 mg tablet 10 mg PO DAILY Depression 02/15/24
(Lexapro)
tamsulosin 0.4 mg capsule (Flomax) 0.4 mg PO HS 02/17/24
Allergies
Allergies
Allergy/AdvReac Type Severity Reaction Status Date / Time
milk Allergy Mild Does not Verified 02/15/24 14:50
settle
well in
stomach
aspirin Allergy Nausea / Verified 02/15/24 14:50
Vomiting
Penicillins Allergy Unknown Verified 03/19/24 11:00
Vital Signs / Labs
-
Vital Signs and Labs:
Temp Pulse Resp BP Pulse Ox
98.2 F 58 12 102/72 95
03/19/24 10:56 03/19/24 12:15 03/19/24 12:15 03/19/24 12:00 03/19/24 12:15
03/19/24 11:22
03/19/24 11:22
03/19/24
11:22
Glucose 102 H
[2024-03-19 12:41] LABS: Alcohol None Detected
--- NOTE | 2024-03-19 13:05 | ED.CVA ---
History of Present Illness
General
Chief Complaint: CVA/TIA Symptoms
Source: patient
Exam Limitations: none
Time Seen by Provider: 03/19/24 11:16
Nursing documentation reviewed up to this point in time: agreed with
Onset of Stroke Symptoms
Onset of symptoms known: No
Time pt last seen normal is known: No
History of Present Illness
History of Present Illness:
Patient presents to ED from home secondary to intermittent episodes of slurred speech/word finding difficulty, over the past 2 days. Per daughter, who lives with the patient, patient had brief episodes of speech impairment, which had resolved
spontaneously. However, when it occurred again this morning, she felt as though patient need to be checked out. Patient himself, upon arrival, has no complaints. Denies headache. Denies dizziness. Denies difficulty with swallowing or speech.
Denies loss of sensation or weakness. Denies difficulty with ambulation. Denies recent illness. No recent change in medications or diet. Denies previous history of similar symptoms.
Past History
Past History
ED Past Medical History: GERD and HTN
ED Past Surgical History: Appendectomy, Cholecystectomy, Tonsilectomy and Other (eye)
Social History
Tobacco: Non-smoker
Alcohol: Occasional
Drug: None
Personal:
Living: with family
Review of Systems
Review of Systems
Allergies reviewed?: Yes
All Other Systems: ROS reviewed and negative except as documented in HPI and ROS
Constitutional: Reports no symptoms
Respiratory: Reports no symptoms
Cardiac: Reports no symptoms
ABD/GI: Reports no symptoms
Musculoskeletal: Reports no symptoms
Skin: Reports no symptoms
Neurological: Reports other (slurred speech)
Phy Exam
Physical Exam
Physical Exam:
Physical Exam
General: no apparent distress, not acutely ill. afebrile
Head: nc/at. eomi
Neck: supple. no meningeal signs. normal posterior pharynx
Heart: s1/s2 regular rate and rhythm, no murmur. equal radial pulses.
Lungs: no acute respiratory distress. clear bilaterally
Abdomen: normal bowel sounds. not tender.
Neuro: alert and oriented. no focal neurological deficits. normal speech.
Skin: no rash
Psychiatric: well kept. interactive and cooperative
Extremities: no edema. no calf tenderness.
Course
Orders/Labs/Results
Orders:
Orders
03/19/24 11:21
CT HEAD STROKE ALERT W/o Cont Urgent
Comment: Unsteady gait, recent subdural hemorrhage
Reason For Exam: intermittent aphasia, dysarthria x 3 days
03/19/24 11:22
Alcohol Urgent
Complete Blood Count/With Diff Urgent
Comprehensive Metabolic Panel Urgent
Prothrombin Time Urgent
03/19/24 11:40
Add On- LAB Urgent
Tests Added?: alcohol level
03/19/24 11:43
Electrocardiogram (*1) Urgent
Reason for Study: TIA/Stroke
EKG- Treatment ONCE
Abnormal Lab Results
03/19/24
11:22
Glucose 102 H mg/dl
(70-99)
03/19/24 11:22
03/19/24 11:22
Vital Signs
Initial and Last Documented VS:
Initial Vital Signs
Temp Pulse Resp BP Pulse Ox
98.2 F 70 16 128/74 98
03/19/24 10:56 03/19/24 10:56 03/19/24 10:56 03/19/24 10:56 03/19/24 10:56
Last Documented Vital Signs
Temp Pulse Resp BP Pulse Ox
98.2 F 58 12 102/72 95
03/19/24 10:56 03/19/24 12:15 03/19/24 12:15 03/19/24 12:00 03/19/24 12:15
MDM/Problems Addressed
MDM/Problems Addressed:
Patient evaluated in ED by Dr. Haynes, neurology, who also reviewed CT head. Does not feel the patient's presentation is concerning for an acute CVA/TIA. Does not recommend any further evaluation treatment at this time. However, does feel that it
is reasonable that patient follows up with a neurologist, with whom he has an appointment next month, especially in light of worsening or ongoing memory loss. Patient and family expressed understanding, at time of discharge
*Critical Care Note
Total Time (30-74mins, 75-104mins- exclusive of procedures): Not Applicable
ED Attending Note
-
Portions of this chart may have been created with voice recognition software.� Occasional wrong word or��sound alike� substitutions may have occurred due to the inherent limitations of voice recognition software.
Discharge Plan
Departure
Patient Disposition: Home (Routine Discharge)
Date of Disposition: 03/19/24
Time of Disposition: 13:05
Patient with high blood pressure during this ER visit?: Yes
Condition: Good
Discharge Problem:
Slurred speech
Instructions: Dysarthria
Prescriptions:
No Action
pantoprazole 40 mg tablet,delayed release (DR/EC)
40 mg PO DAILY
rosuvastatin 5 mg tablet
5 mg PO DAILY
levothyroxine [Synthroid] 150 mcg Tablet
150 mcg PO DAILY AT 0700
amlodipine [Norvasc] 5 mg tablet
5 mg PO DAILY Qty: 30 0RF
escitalopram oxalate [Lexapro] 10 mg Tablet
10 mg PO DAILY
tamsulosin [Flomax] 0.4 mg Capsule
0.4 mg PO HS
Referrals:
Hai Lee MD [Family Provider] -
Activity Restrictions/Additional Instructions:
As discussed, please follow-up with your neurologist next month as scheduled, for further evaluation and treatment. Please return to ED with recurrent or change in any neurological symptoms.
Interventions
Interventions:
*Risk Screen - Suicide Last Done: 03/19/24 10:56
*Neglect/Abuse Screening Last Done: 03/19/24 10:56
*Nursing Disposition Last Done: 03/19/24 13:26
ED- Pulmonary Assessment Last Done: 03/19/24 11:07
ED- Neurological Assessment Last Done: 03/19/24 11:07
ED- Cardiac Assessment Last Done: 03/19/24 11:07
ED Swallowing Screen Last Done: 03/19/24 13:23
Discharge Date and Time
Discharge Date/Time: 03/19/24 13:27
Print Language: ESTONIAN
== END 2024-03-19 13:27 | disposition home or self-care (01) ==
LOC: EMR 10:53
PROVIDERS: EMERGENCY PHYSICIAN Emergency Medicine; FAMILY PHYSICIAN Family Medicine
DX: R47.81 Slurred speech (principal); K21.9 Gastro-esophageal reflux disease without esophagitis; I10 Essential (primary) hypertension; E03.9 Hypothyroidism, unspecified; E78.00 Pure hypercholesterolemia, unspecified; F03.90 Unspecified dementia, unspecified severity, without behavioral disturbance, psychotic disturbance, mood disturbance, and anxiety; Z88.0 Allergy status to penicillin; Z90.49 Acquired absence of other specified parts of digestive tract; Z90.89 Acquired absence of other organs
CPT/HCPCS: 99284; 70450; 80053; 82077; 82962; 85025; 85610; 93005

== ENCOUNTER 2024-03-22 07:49 | Inpatient (IN) | payer MEDICARE, BC, SELFPAY ==
[2024-03-19] VITALS (7 sets, daily range): BP systolic 90–132; BP diastolic 56–97; BMI 22.7; BMI 21.1
--- NOTE | 2024-03-19 17:41 | ED.GENMED ---
History of Present Illness
General
Chief Complaint: Abnormal Lab Value
Source: patient, records and family
Exam Limitations: none
Time Seen by Provider: 03/19/24 17:18
Nursing documentation reviewed up to this point in time: agreed with
History of Present Illness
History of Present Illness:
89-year-old male with a past medical history of hypertension, hyperlipidemia, GERD, hypothyroidism who presents to the emergency department with his family called back for subdural hemorrhage noted on earlier CT. Patient has notable recent history
of traumatic subdural hematoma for which he was admitted to this hospital 02/15/2024 until 02/17/2024. He had been doing well, return to the emergency room earlier today with 48-hour history of intermittent expressive aphasia and intermittent
headache. He was initially called as a stroke alert was seen in conjunction with neurology, it was felt that findings on CT represented chronic subdural hematoma and he was ultimately discharged. After review of radiology report noted that there
was an acute component of subdural hematoma he was called back to the emergency room for admission. On my assessment here he says that he feels well denies any symptoms. He is not on any blood thinners. He denies any falls or trauma since his
initial fall in February.
Past History
Past History
ED Past Medical History: GERD and HTN
ED Past Surgical History: Appendectomy, Cholecystectomy, Tonsilectomy and Other (eye)
Social History
Tobacco: Non-smoker
Alcohol: Occasional
Drug: None
Personal:
Living: with family
Review of Systems
Review of Systems
All Other Systems: ROS reviewed and negative except as documented in HPI and ROS
Neurological: Reports headache and other (Speech difficulties); Denies dizzy, weakness or numbness
Phy Exam
Physical Exam
Physical Exam:
General: Awake, alert, oriented x3; no acute distress
Head: Normocephalic, atraumatic
Eyes: Conjunctiva normal, EOMI, anisocoria with right pupil greater than left status post cataract surgery on the right
Throat: Airway intact, handling secretions
Neck: Trachea midline, supple without meningismus
Lungs: Clear to auscultation bilaterally, no wheezing, rales, rhonchi
Heart: Regular rate and rhythm, no murmurs, gallops, or rubs appreciated
Abd: Soft, non distended, nontender
Neuro: Cranial nerves intact, speech fluid with no aphasia noted, motor and sensory intact in all extremities
Extremities: Warm and well-perfused
Scores
Heart Failure Risk
Heart Failure Risk Score: Not Applicable
Heart Score for Chest Pain Patients
STEMI patient?: Not applicable
Withdrawal Assessment of Alcohol
Withdrawal Assessment Completed?: Not applicable
Course
Orders/Labs/Results
Orders:
Orders
03/19/24 18:04
Levetiracetam Injectable [Keppra] 1,000 mg IV NOW STA
Vital Signs
Initial and Last Documented VS:
Initial Vital Signs
Temp Pulse Resp BP Pulse Ox
36.8 C 68 18 117/97 95
03/19/24 17:09 03/19/24 17:09 03/19/24 17:09 03/19/24 17:09 03/19/24 17:09
Last Documented Vital Signs
Temp Pulse Resp BP Pulse Ox
36.8 C 68 15 118/74 95
03/19/24 17:09 03/19/24 17:09 03/19/24 17:31 03/19/24 17:31 03/19/24 17:09
MDM/Problems Addressed
Differential Diagnosis Includes:
Acute on chronic subdural hematoma
MDM/Problems Addressed:
89-year-old male with history as documented returns to the emergency room called back with acute on chronic subdural hematoma. Awake and alert with a GCS 15, neuro intact with no symptoms on my assessment. Vital signs normal. Case discussed with
neurosurgery recommended admission to IMU, repeat CT in the morning or sooner if change in neurostatus. Recommended Keppra 1 g IV now, 500 mg twice daily thereafter. Goal systolic blood pressure less than 140. Case discussed with hospitalist for
admission.
Chronic conditions affecting care:
Hypertension
Chronic conditions affecting care: HTN
*Radiology
Radiology exam reviewed: radiology read reviewed
*Pulse Oximetry
Patient hypoxic: no
*Critical Care Note
Total Time (30-74mins, 75-104mins- exclusive of procedures): Not Applicable
Data Reviewed
Source: patient, records and family
Patient Management
Discussion with other providers: Hospitalist (Discussed with hospitalist) and Cigarette Machines Mechanic (Discussed with neurosurgery)
Escalation/DeEscalation of care consider admission/obs:
Admission indicated
ED Attending Note
-
Portions of this chart may have been created with voice recognition software.� Occasional wrong word or��sound alike� substitutions may have occurred due to the inherent limitations of voice recognition software.
Discharge Plan
Departure
Patient Disposition: Admit
Date of Disposition: 03/19/24
Time of Disposition: 18:02
Admit to doctor: Evie
Presentation/result/management discussed w/ accepting MD/DO: Hospitalist
Discharge Problem:
Subdural hemorrhage
Prescriptions:
No Action
pantoprazole 40 mg tablet,delayed release (DR/EC)
40 mg PO DAILY
rosuvastatin 5 mg tablet
5 mg PO DAILY
levothyroxine [Synthroid] 150 mcg Tablet
150 mcg PO DAILY AT 0700
amlodipine [Norvasc] 5 mg tablet
5 mg PO DAILY Qty: 30 0RF
escitalopram oxalate [Lexapro] 10 mg Tablet
10 mg PO DAILY
tamsulosin [Flomax] 0.4 mg Capsule
0.4 mg PO HS
Interventions
Interventions:
*Risk Screen - Suicide Last Done: 03/19/24 17:09
*General Assessment Last Done: 03/19/24 17:09
ED- Fall Risk Assessment Last Done: 03/19/24 17:27
*ED COVID-19 Vaccine History Last Done: 03/19/24 17:09
Discharge Date and Time
Print Language: [id number]
[2024-03-19] MEDS: KEPPRA 1000 MG IV (18:35)
--- NOTE | 2024-03-19 18:42 | HPS.HSE ---
Family Physician
-
Family Physician: Hai Lee
Chief Complaint
-
word finding difficulty
History of Present Illness
89-year-old male past medical history of subdural hematoma, GERD, hypertension, hyperlipidemia, hypothyroidism, memory loss, presenting with intermittent episodes of slurred speech/word finding difficulty over the past 2 days. Patient had brief
episodes of speech impairment which resolved spontaneously but occurred again this morning. Patient denies any complaints. He denies headache, dizziness, difficulty speaking or swallowing. He denies numbness or tingling or focal weakness. Denies
difficulty with ambulation.
As per daughter he has vision loss in his left eye. He had cataract surgery done on the side many years ago. Since the fall last month the lens fell out and he is due to get it fixed at [facility]. He also complains of right eye blurry vision
which is not new and he has also had cataract surgery and lens repair on it done previously.
Patient was recently admitted from 02/14 to 02/16 with 2 mechanical falls while using alcohol. He was found to have small 2 mm right-sided subdural hematoma in the frontoparietal region. He was seen by neurosurgery discharged with neurosurgery
referral.
Medical History
Past Medical History
Past Medical History: Reports Other (subdural hematoma, GERD, hypertension, hyperlipidemia, hypothyroidism, memory loss, )
Past Surgical History: Reports None
Social History
Tobacco: Non-smoker
Alcohol: None
Drug: None
Family History
Family History: Not pertinent
Allergies / Home Medications
Allergies reflects when Allergies were last updated in [employer].
Home Medications with original date entered in [employer]
Allergy/Medication List:
Allergies
Allergy/AdvReac Type Severity Reaction Status Date / Time
aspirin Allergy Nausea / Verified 03/19/24 17:14
Vomiting
Penicillins Allergy Unknown Verified 03/19/24 17:14
Home Medications
levothyroxine 150 mcg tablet (Synthroid) 150 mcg PO DAILY AT 0700 Thyroid 08/18/22
pantoprazole 40 mg tablet,delayed release 40 mg PO DAILY Gastrointestinal issue 08/18/22
rosuvastatin 5 mg tablet 5 mg PO DAILY High cholesterol 08/18/22
amlodipine 5 mg tablet (Norvasc) 5 mg PO DAILY #30 tabs 08/20/22
escitalopram oxalate 10 mg tablet (Lexapro) 10 mg PO DAILY Depression 02/15/24
tamsulosin 0.4 mg capsule (Flomax) 0.4 mg PO HS 02/17/24
Review of Systems
-
History Source: Patient
A 12 point ROS was completed and negative except as noted: Yes
Constitutional: Reports No Symptoms
EENT: Reports No Symptoms
Respiratory: Reports No Symptoms
Cardiac: Reports No Symptoms
Abdomen/GI: Reports No Symptoms
: Reports No Symptoms
Musculoskeletal: Reports No Symptoms
Skin: Reports No Symptoms
Neurological: Reports No Symptoms
Endocrine: Reports No Symptoms
Hematologic/Lymphatic: Reports No Symptoms
Psych: Reports No Symptoms
Physical Exam
Vital Signs
Vital Signs
Temp Pulse Resp BP Pulse Ox
98.2 F 68 15 118/74 95
03/19/24 17:09 03/19/24 17:09 03/19/24 17:31 03/19/24 17:31 03/19/24 17:09
Physical Exam
General: Well Developed, Well Nourished and No Apparent Distress
HEENT: NormoCephalic, Moist mucous membranes and Atraumatic
Respiratory: Clear
Cardiac: S1/S2 and Regular Rhythm; No Murmur or Rub
GI: Soft, Non Tender, Non Distended and Normal Bowel Sounds; No Organomegaly
Rectal: Deferred by Provider
Musculoskeletal: No Clubbing, No Cyanosis and No Edema
Skin: No Rash
Neuro: Nonfocal/grossly intact
Data Reviewed
-
Lab Data: Labs Reviewed by me
Old Records: Reviewed
Impression/Plan
-
IMPRESSION:
PLAN:
# Acute small subdural hemorrhage overlying larger chronic subdural fluid collection
-CT scan shows mild amount of mass effect in the left cerebral hemisphere causing 5.3 mm [id number] midline shift mildly increased from 02/24
-Neurosurgery consulted and recommending Keppra 1 g now and 500 twice daily after
-CT head in the morning unless worsening neurological deficits
-Neurochecks per protocol
-Maintain systolic blood pressure under 140
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
# History of bilateral cataract surgery
-Eye symptoms are at baseline and known to daughter and [facility]
Essential hypertension
-Continue amlodipine
Hyperlipidemia
-Continue statin
GERD
-Continue Protonix
Hypothyroidism
Memory loss
BPH
-Continue tamsulosin
Anxiety/depression
-Continue Lexapro
Full code
DVT prophylaxis�SCDs
Regular diet
--- NOTE | 2024-03-19 21:00 | PTCARENOTE ---
Pt. admitted to ICU as IMU overflow. Awake, alert, and oriented. Patient able to walk to bed from stretcher. Denies pain/discomfort. NIHSS currently 0. Afebrile. Heart rhythm sinus. Currently on room air. Lungs sound diminished. Able to drink
liquids without issue. Voiding without issue. Skin as documented. Discussed plan of care with patient. Vital signs stable at this time.
[2024-03-19] MEDS: KEPPRA 500 MG IV (21:23)
[2024-03-19] MEDS: FLOMAX 0.4 MG PO (21:24)
[2024-03-20] VITALS (11 sets, daily range): BP systolic 87–125; BP diastolic 54–76; PULSE 63; O2SAT 96; BMI 21.1
[2024-03-20] MEDS: SYNTHROID 150 MCG PO (05:40)
[2024-03-20 05:47] LABS: Hematocrit 41.8 % (39.0-52.0); Hemoglobin 14.1 g/dL (13.0-18.0); Mean Corp Hgb Conc. 33.7 g/dL (33.0-37.0); Mean Corpuscular Hgb 30.1 pg (27.0-31.0); Mean Corpuscular Volume 89.3 fL (80.0-94.0); Mean Platelet Volume 8.9 fL (7.4-10.4); Platelet Count 237 10^3/uL (130-400); Red Blood Cell Count 4.68 10^6/uL (4.70-6.10); Red Cell Dist. Width 13.2 % (11.5-14.5)
[2024-03-20 06:03] LABS: ALT (SGPT) 12 U/L (0-50); AST (SGOT) 19 U/L (17-59); Alkaline Phosphatase 89 U/L (38-126); Blood Urea Nitrogen 19 mg/dl (9-20); Calcium 10.2 mg/dl (8.4-10.2); Carbon Dioxide 24 mmol/L (22-30); Chloride 106 mmol/L (98-107); Estimated Creatinine Clearance 42 ml/min; Glucose 99 mg/dl (70-99); Potassium 4.4 mmol/L (3.5-5.1); Sodium 142 mmol/L (135-145); Total Bilirubin 0.4 mg/dl (0.2-1.3); Total Protein 6.8 g/dl (6.3-8.2); eGFR > 60.00
[2024-03-20] MEDS: PROTONIX 40 MG PO (08:07)
[2024-03-20] MEDS: KEPPRA 500 MG IV ×2 (08:07→19:36)
[2024-03-20] MEDS: CRESTOR 5 MG PO (08:08)
[2024-03-20] MEDS: NORVASC 5 MG PO (08:08)
[2024-03-20] MEDS: LEXAPRO 10 MG PO (08:08)
--- NOTE | 2024-03-20 08:31 | CON.INTV ---
Consultation
Consultation Request
Date/Time Consultation Requested: 03/19/2024
Date/Time Consultation Performed: 03/20/2024 - 827
Requesting Provider: Dr. Case
Performing Provider: Dr. Centeno
Reason for Consultation: Acute on chronic subdural hematoma
Medical History
-
Chief Complaint: Recent fall; abnormal CT head
History of Present Illness:
89-year-old M with PMHx of HTN, hypothyroidism, HLD and BPH who p/w abnormal head CT showing worsening acute L-sided subdural hematoma. He came to the ER on AM of 03/19/2024 due to slurred speech and word-finding difficulty x 2 days. Speech
impairment occurred at home and resolved spontaneously. They occurred again on the morning COMPOSITION WORKER so his daughter brought him to the ER and CT head performed a stroke alert. Initially in the ER he was afebrile to 98.2 �F, pulse rate 68, breathing at
18 breaths/min, BP 117/97 and saturating 95% on room air. Initial labs showed normal WBC at 6.4, Hb 14.4, INR 1.03, creatinine 1, glucose 102, and negative alcohol level. Patient left the ER prior to the CT head being officially read. CT head
showed a small acute subdural hemorrhage superimposed upon a larger chronic subdural fluid collection. There was mild amount of mass effect on the left cerebral hemisphere causing 5.3mm left to right midline shift which is increased since prior CT
head on 02/25/2024. No CT evidence for acute transcortical infarct. Patient was called and he returned to the hospital and was admitted to the ICU for close monitoring. Mechanical Maintenance Foreman services consulted for additional management/recommendations.
When I saw the patient this morning, he was resting in bed in no acute distress. Some of his recollection of his history is spotty and he is not always the best historian. He does remember that he fell out of his bed last month and hit his head
and then hit his head again after tripping over a gate and hitting the door frame. He currently denies headache, visual changes, hearing loss, nausea, vomiting, numbness/tingling or weakness in any extremity. He is currently on room air saturating
98%. Heart rate 63 and BP 106/64. He is hungry and wants to eat.
Of note, he was recently hospitalized here from 02/14 - 02/17/2024 after falling while drunk at home. He hit his head after falling out of his bed. Also he had tripped over a gate in his home and hit his head again on the door frame. He was
brought to the ER at that time with CT head showing suspected bilateral subdural hygromas with no mass effect. Subsequent CT head showed suspected small subdural hematoma in the right frontal-temporal region. He was discharged home with
instructions to follow-up with his PCP as well as neurosurgery.
PMHx: Left subdural hematoma, HTN, hypothyroidism, HLD, GERD, depression and BPH
PSHx: Appendectomy, cholecystectomy, tonsillectomy
Past Medical History
Past Medical History: Other (Above as per HPI)
Past Surgical History: Other (Above as per HPI)
Social History
Tobacco: Non-smoker
Alcohol: Occasional
Drug: None
Personal:
Living: With Family (daughter)
Family History
Family History: Reviewed & Not Pertinent
Allergies / Home Medications
Allergies
Allergy/AdvReac Type Severity Reaction Status Date / Time
aspirin Allergy Nausea / Verified 03/19/24 17:14
Vomiting
Penicillins Allergy Unknown Verified 03/19/24 17:14
Home Medications
�Medication �Instructions �Recorded �Confirmed �Last Taken �Type
levothyroxine 150 mcg tablet 150 mcg PO DAILY@06 Thyroid 08/18/22 03/20/24 03/18/24 History
(Synthroid)
pantoprazole 40 mg tablet,delayed 40 mg PO DAILY Gastrointestinal 08/18/22 03/19/24 03/18/24 History
release issue
rosuvastatin 5 mg tablet 5 mg PO DAILY High cholesterol 08/18/22 03/19/24 03/18/24 History
amlodipine 5 mg tablet (Norvasc) 5 mg PO DAILY #30 tabs 08/20/22 03/19/24 03/18/24 Rx
escitalopram oxalate 10 mg tablet 10 mg PO DAILY Depression 02/15/24 03/19/24 03/18/24 History
(Lexapro)
tamsulosin 0.4 mg capsule (Flomax) 0.4 mg PO HS Urinary Issue 02/17/24 03/19/24 03/18/24 History
Review of Systems
-
History Source: Patient
All other systems: Negative unless noted
Vitals / Labs / Diagnostic Testing
Vital Signs
Temp Pulse Resp BP Pulse Ox
97.9 F 65 20 100/64 98
03/20/24 07:00 03/20/24 08:08 03/20/24 06:00 03/20/24 08:08 03/19/24 21:00
Lab Data
03/20/24 05:29
03/20/24 05:30
Diagnostic Testing:
Physical Exam
-
HEENT: Normocephalic and Anicteric
Cardiovascular: S1/S2 and Peripheral Edema (negative)
Respiratory: Clear, Wheeze (negative), Rales (negative), Rhonchi (negative) and Non-Labored Respirations
GI: Soft, Non Distended, Non Tender and Normal Bowel Sounds
Neurology: Awake, Alert, No Motor Deficits, Tremors (negative) and Other (Right pupil: 3 mm, left pupil 2 mm and brisk bilaterally; CN II-XII grossly intact)
Skin: Warm and Dry
General: Respiratory Distress (negative), Comfortable, Fever (negative), Chills (negative), Sweats (negative) and Good Appetite
Assessment
-
Assessment: 89-year-old M with PMHx of HTN, hypothyroidism, HLD and BPH who p/w abnormal head CT showing worsening acute L-sided subdural hematoma. He came to the ER on AM of 03/19/2024 due to slurred speech and word-finding difficulty x 2 days.
Speech impairment occurred at home and resolved spontaneously. They occurred again on the morning COMPOSITION WORKER so his daughter brought him to the ER and CT head performed a stroke alert. Initially in the ER he was afebrile to 98.2 �F, pulse rate 68,
breathing at 18 breaths/min, BP 117/97 and saturating 95% on room air. Initial labs showed normal WBC at 6.4, Hb 14.4, INR 1.03, creatinine 1, glucose 102, and negative alcohol level. Patient left the ER prior to the CT head being officially read.
CT head showed a small acute subdural hemorrhage superimposed upon a larger chronic subdural fluid collection. There was mild amount of mass effect on the left cerebral hemisphere causing 5.3mm left to right midline shift which is increased since
prior CT head on 02/25/2024. No CT evidence for acute transcortical infarct. Patient was called and he returned to the hospital and was admitted to the ICU for close monitoring. Mechanical Maintenance Foreman services consulted for additional
management/recommendations.
Chronic conditions COMPOSITION WORKER: Left subdural hematoma, history of falls, HTN, hypothyroidism, HLD, GERD, depression and BPH
Impression:
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
#Intermittent expressive aphasia with headache � now resolved - suspicious for TIA
#History of recent fall with traumatic left-sided subdural hematoma
#GERD
#History of depression
#History of BPH
#History of hyperlipidemia
Plan:
- Maintain BP <140/90 --> this AM he is 106/64, denies headache, visual disturbances, trouble hearing, and denies numbness or tingling or weakness in any extremity
- Repeat CT head this AM shows stable left frontal lobe SDH with no acute findings compared to yesterday
- neurosurgery consulted - recs appreciated
- For now, hold antiplatelet/anticoagulation until cleared otherwise by neurosurgery
- Fall precautions
- PT/OT
- Neurology consulted --> given his recent stroke-like symptoms, perhaps starting ASA would be beneficial, however with his acute on chronic subdural hemorrhage and fall risk this could pose a risk --> need to obtain recs from
neurology/neurosurgery and then based on risk vs benefit discussion with patient and daughter then can decide if anti-platelet therapy is needed. Will defer this decision to primary team + neurology/neurosurgery
- COOLER WORKER evsoila
- Patient passed bedside RN gurvinder and there is no concern for aspiration --> ok to resume home PO meds and will start clear liquid diet. Won't advance diet further until speech clears him
- Maintain euglycemia with goal BG 140-180
- Will defer to neurology if brain MRI is needed
- Maintain SpO2 >90-94%
- Maintain MAP>65 and keep SBP<140mmHg
- Replete electrolytes with K>4, Mg>2
- Trend H/H and transfuse if needed to keep Hb>7g/dL; keep plt>100k
- prn nebulized bronchodilators - not currently bronchospastic
- Incentive spirometer encouraged 10x per hour for at least 4 hrs a day
- DVT ppx: SCDs
Repeat CT Head this AM shows stable L-sided SDH with improving midline shift (left to right shift). Patient stable for downgrade out of ICU to telemetry. This was confirmed with neurosurgery. No additional recommendations at this time -
Mechanical Maintenance Foreman/Pulmonary service will now sign off. Thank you for allowing us to be involved in the care of this patient. Please re-consult if there are any additional questions/concerns, or if patient's respiratory status deteriorates.
Data:
CT Head 03/19/2024:
1. SMALL ACUTE SUBDURAL HEMORRHAGE overlying the lateral convexity of the left frontal lobe which is superimposed upon a larger CHRONIC SUBDURAL FLUID COLLECTION. Mild amount of mass effect on the left cerebral hemisphere causing 5.3 mm left to
right midline shift which appears to have mildly increased since 02/25/2024.
2. No CT evidence for acute transcortical infarct.
3. 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
4. Mild diffuse cerebral and cerebellar volume loss.
ASPECT score: 10
Total time spent today was 77 minutes for this encounter. Time includes reviewing laboratory test/imaging results, reviewing pertinent medical records, obtaining and reviewing medical history, performing an appropriate exam, ordering medications,
tests and procedures. Time also includes documentation of this encounter, coordinating patient care and communicating with other healthcare professionals. Total time does not include separately billed tests performed on this date of service.
--- NOTE | 2024-03-20 10:26 | PTCARENOTE ---
pt aaox3. states no pain or sob. pt able to walk to stretcher from bed. nihss 0. pt has prior vision loss.
--- NOTE | 2024-03-20 10:53 | W.PN.HOSP.TC ---
Today's Communication/Plan
-
Keppra
Assessment / Plan
Assessment / Plan
Gen: NAD, AAOx3.
Eyes: EOMI, L pupil 2mm, R pupil 4mm, no scleral icterus.
Neck: supple.
CV: RRR, +S1/S2, no m/r/g.
Resp: CTAB, no rales, wheezes, or rhonchi.
Abd: +BS, soft, NT, ND
Skin: No rashes.
Neuro: CN 2-12 intact, non-focal.
Psych: Normal mood and affect.
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
Acute small subdural hemorrhage overlying larger chronic subdural fluid collection:
-CT scan shows mild amount of mass effect in the left cerebral hemisphere causing 5.3 mm [id number] midline shift mildly increased from 02/24
-repeat CT above and stable
-Neurosurgery consulted (awaiting official consult) and recommended Keppra 1g IV followed by 500mg IV Q12H
-Neurochecks
-Maintain systolic blood pressure under 140
Other problems:
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
Essential hypertension: cont amlodipine
Hyperlipidemia: cont statin
GERD: cont PPI
Hypothyroidism
Memory loss
BPH: cont tamsulosin
Anxiety/depression: cont Lexapro
FULL/SCDs
Anticipated Discharge: Within 24 hours
Subjective/Interval History
-
Date of Service: March 20, 2024
No new complaints.
Objective Data
-
Labs:
Laboratory Results
03/20/24 03/20/24
05:29 05:30
WBC 7.0
Hgb 14.1
Hct 41.8
Plt Count 237
Sodium 142
Potassium 4.4
Chloride 106
Carbon Dioxide 24
BUN 19
Creatinine 1.0
Glucose 99
Calcium 10.2
Total Bilirubin 0.4
AST 19
ALT 12
Alkaline Phosphatase 89
Vital Signs:
Vital Signs
Temp Pulse Resp BP Pulse Ox
97.9 F 64 21 125/66 98
03/20/24 07:00 03/20/24 10:00 03/20/24 10:00 03/20/24 10:00 03/19/24 21:00
I&O
03/19/24 03/20/24 03/21/24
06:59 06:59 06:59
Intake Total 200 / 200
Output Total 300 / 300
Balance -100 / -100
--- NOTE | 2024-03-20 15:23 | PTOTSP ---
SPEECH THERAPY SWALLOW AND SPEECH/LANGUAGE/COGNITIVE COMMUNICATION EVALUATION:
Patient exhibits clinical signs of oropharyngeal dysphagia, likely chronic related to weakness/deconditioning, GERD, and history of SDH last month. Per daughter/patient report, dysphagia symptoms have been a chronic, albeit infrequent issue for a
long time. No history of pneumonia. No signs of respiratory distress at this time. Patient remains at risk for aspiration and related complications given confusion and impulsivity. Recommend IDDSI Level 6 Soft and Bite Size diet, thin liquids.
Medications whole with single sips of thin liquid as tolerated. Aspiration and Reflux precautions: Upright positioning; Small single sips; Small bites; Slow rate of intake; 100% supervision with meals; Partial assistance; Verbal cues to take small
sips/bites; Ensure oral cavity clear prior to next bite; Overchew solids; Remain upright 30 minutes after eating/drinking; Alternate textures; Monitor for signs of aspiration; D/c oral diet if any decline in mental or respiratory status. Oral care
3x/day to reduce risk for nosocomial infection. Consider Outpatient Videofluoroscopic Swallowing Study to further assess swallow physiology given chronicity of dysphagia symptoms. ST to continue to follow at the acute care level, assess diet
tolerance and modify as appropriate, determine indication for inpatient VSE if indicated, and provide continued diagnostic swallow therapy as appropriate. Discussed with patient who initially did not agree with diet modification, though eventually
verbalized agreement; Discussed with family/RN/Dr. Dugan.
Patient exhibits mild intermittent dysarthria, mild expressive language impairments, (word finding difficulties), mild receptive language impairments (complex directions, complex auditory comprehension tasks, processing speed), and mild-moderate
cognitive communication impairments (STM, orientation, attention, problem solving, insight, reasoning, categorizing) likely [id number] related to recent SDH along with chronic memory loss per family report. Recommend ST services at the acute
care level, with continued assessment into prior level of functioning. Consider outpatient ST services upon discharge.
RECOMMEND:
1) IDDSI Level 6 Soft and Bite Size diet, thin liquids
2) Medications whole with single sips of thin liquid as tolerated
3) Aspiration and Reflux precautions: Upright positioning; Small single sips; Small bites; Slow rate of intake; 100% supervision with meals; Partial assistance; Verbal cues to take small sips/bites; Ensure oral cavity clear prior to next bite;
Overchew solids; Remain upright 30 minutes after eating/drinking; Alternate textures; Monitor for signs of aspiration; D/c oral diet if any decline in mental or respiratory status
4) Oral care 3x/day to reduce risk for nosocomial infection
5) Consider Outpatient Videofluoroscopic Swallowing Study to further assess swallow physiology given chronicity of dysphagia symptoms
6) ST to continue to follow at the acute care level. Consider outpatient ST services given [id number] SDH
--- NOTE | 2024-03-20 15:30 | CON.NS ---
Addendum entered and electronically signed by Elizabeth Boyle MD 03/20/24 16:11:
Discussed with physical therapy who reports that the patient may have left-sided paresis, which may be contributing to gait instability. Patient continues to have intermittent hesitation on speech.
Given this, will obtain MRI of the head to rule out occult stroke.
Original Note:
Consultation
-
Date/Time Consultation Performed: 03/20/2024; 15:45
Performing Provider: Tamar
Chief Complaint
History of Present Illness
This is a neurosurgical consultation on an 89-year-old gentleman who presents with a reported history of intermittent episodes of word finding difficulty over the last several days. He has active medical issues including hypertension,
hyperlipidemia, memory loss. He sustained a fall in February while using alcohol, was found to have right sided small subdural hematomas, which were treated/managed nonoperatively. Patient had noncontrast CT scan which demonstrated increase in size
of subdural fluid collection. It appeared that there was increased shift from last imaging study performed on 02/24. Patient was admitted for close monitoring. He was initiated on Keppra 500 mg twice daily, after receiving 1 g bolus in the
emergency room. He had a repeat CT which is stable.
Patient does complain of headache over the last several days.
Patient seen and examined. Additional history was obtained via telephone from the patient's daughter, Nataly. Patient's daughter reports that while he does have baseline memory and cognitive decline, he is had significant changes over the last
several days with intermittent speech difficulties. She reports that he has not had any interval falls. She reports that he is not drinking currently.
Review of Systems
-
10 per review of systems including constitutional, integumentary, cardiovascular, respiratory, GI, , neurologic, hematologic, endocrinologic, was negative except for as stated in HPI.
Medication and Allergies
Home Medications
Home Medications
�Medication �Instructions �Recorded
levothyroxine 150 mcg tablet 150 mcg PO DAILY@06 Thyroid 04/16/23
(Synthroid)
pantoprazole 40 mg tablet,delayed 40 mg PO DAILY Gastrointestinal 08/18/22
release issue
rosuvastatin 5 mg tablet 5 mg PO DAILY High cholesterol 08/18/22
amlodipine 5 mg tablet (Norvasc) 5 mg PO DAILY #30 tabs 08/20/22
escitalopram oxalate 10 mg tablet 10 mg PO DAILY Depression 02/15/24
(Lexapro)
tamsulosin 0.4 mg capsule (Flomax) 0.4 mg PO HS Urinary Issue 02/17/24
Allergies
Allergies
Allergy/AdvReac Type Severity Reaction Status Date / Time
aspirin Allergy Nausea / Verified 03/19/24 17:14
Vomiting
Penicillins Allergy Unknown Verified 03/19/24 17:14
Physical Exam
-
Exam:
Awake, alert, no apparent distress.
Cranial nerves II to XII are grossly intact.
Motor: 5/5 strength bilaterally in upper extremities and lower extremities, no evidence of pronator drift.
Speech is fluent, comprehension is intact, repetition is normal. No obvious evidence of speech arrest was noted on my encounter.
Head is normocephalic atraumatic
Neck is supple
Breathing nonlabored
Abdomen is soft
Cardiac: Regular rhythm
Extremities are warm
Noncontrast CT scan of the head performed on 03/20/2024 was reviewed. This was compared with previous imaging study performed on 03/19/2024. Overall, there is stable appearance of left sided convexity subdural collection with stable appearance of
acute component. In looking back on previous CT scans of the head. It appears that the overall size of the subdural collection is stable but that the acute component is new. He was also found to have a prominent extra-axial fluid collection on
scans obtained 02/14, and 02/16.
Problems
-
Problem Status Onset Code
Subdural hemorrhage I62.00
Assessment / Plan
-
This is an 89-year-old gentleman that presents with intermittent word finding difficulties. He was found to have a left-sided subdural hematoma after he sustained 2 falls in mid February. His most recent imaging demonstrates chronic finding of
subdural collection, with a small acute component.
There is no obvious significant change in the actual size or diameter of the subdural collection, on my personal review and interpretation of imaging.
Extensive telephone discussion was held with the patient's daughter. I discussed that if he continues to have ongoing speech changes, despite being on antiepileptic treatment, and/or headaches continue to worsen and persistent and it is correlated
with increased size/acuity on follow-up imaging of subdural collection, he may need surgical drainage of subdural hematoma.
If over the course of the next 7 to 10 days, he demonstrates stabilization and/or improvement of symptoms, hopefully, we can continue to treat this subdural collection nonoperatively.
Okay to downgrade from ICU.
Maintain normal systolic blood pressures
Will need follow-up CT scan of the head in approximately 7 to 10 days and subsequent follow-up in the office.
Daughter was instructed to call the office and/or bring the patient to the emergency room, should she notice persistent or worsening neurological changes. She expresses understanding of this and is in agreement with the plan.
Given stability of subdural hematoma on repeat imaging, okay to initiate DVT prophylaxis, if needed, on 03/21/2024.
Hold any antiplatelet agents or therapeutic oral anticoagulants for now.
--- NOTE | 2024-03-20 16:07 | CM ---
CM reviewed chart, patient seen bedside, initial assessment completed. Patient lives with daughter in one story home, one step to enter. Patient has a cane and walker at home. Doctor in to see patient, DARLING spoke with patients daughter, Nataly, over
the phone to complete assessment. Daughter requesting pharmacy change to [facility] in [place], changed in system. Patient PCP Hai Lee. Daughter denies VN or SNF history for patient- reports he has never needed it. LEO reviewed with daughter.
CM will continue to follow for all discharge planning needs.
Plan; home with daughter, watch for VN needs.
--- NOTE | 2024-03-20 17:34 | PTCARENOTE ---
during shift pt oob walking halls with PT. unsteady on feet. oob in chair. bed chair alarm on.
[2024-03-20] MEDS: FLOMAX 0.4 MG PO (21:06)
[2024-03-21] VITALS (8 sets, daily range): BP systolic 94–132; BP diastolic 68–84; PULSE 65–71
[2024-03-21] MEDS: SYNTHROID 150 MCG PO (04:39)
[2024-03-21 04:51] LABS: Hemoglobin 13.9 g/dL (13.0-18.0); Mean Corp Hgb Conc. 33.9 g/dL (33.0-37.0); Mean Corpuscular Hgb 30.2 pg (27.0-31.0); Mean Corpuscular Volume 89.1 fL (80.0-94.0); Mean Platelet Volume 8.8 fL (7.4-10.4); Platelet Count 239 10^3/uL (130-400); Red Cell Dist. Width 13.2 % (11.5-14.5); White Blood Cell Count 6.1 10^3/uL (4.8-10.8)
[2024-03-21 05:20] LABS: Blood Urea Nitrogen 21 mg/dl (9-20); Calcium 9.7 mg/dl (8.4-10.2); Carbon Dioxide 23 mmol/L (22-30); Chloride 103 mmol/L (98-107); Estimated Creatinine Clearance 42 ml/min; Glucose 105 mg/dl (70-99); Magnesium 2.1 mg/dl (1.6-2.3); Phosphorus 4.1 mg/dl (2.5-4.5); Potassium 4.4 mmol/L (3.5-5.1); Sodium 140 mmol/L (135-145); eGFR > 60.00
[2024-03-21] MEDS: CRESTOR 5 MG PO (08:03)
[2024-03-21] MEDS: NORVASC 5 MG PO (08:03)
[2024-03-21] MEDS: LEXAPRO 10 MG PO (08:03)
[2024-03-21] MEDS: PROTONIX 40 MG PO (08:03)
[2024-03-21] MEDS: KEPPRA 500 MG IV ×2 (08:03→21:36)
--- NOTE | 2024-03-21 08:21 | PTCARENOTE ---
pt aaox3 forgetful at times. 1 person min assist to bathroom. nihss 0
--- NOTE | 2024-03-21 08:58 | W.PN.HOSP.TC ---
Today's Communication/Plan
-
see bold
Assessment / Plan
Assessment / Plan
Gen: NAD, AAOx3.
Eyes: remains EOMI, L pupil 2mm, R pupil 4mm, no scleral icterus.
Neck: supple.
CV: remains RRR, +S1/S2, no m/r/g.
Resp: remains CTAB, no rales, wheezes, or rhonchi.
Abd: +BS, soft, NT, ND
Skin: No rashes.
Neuro: CN 2-12 intact, non-focal.
Psych: Normal mood and affect.
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
Acute small subdural hemorrhage overlying larger chronic subdural fluid collection:
-CT scan shows mild amount of mass effect in the left cerebral hemisphere causing 5.3 mm [id number] midline shift mildly increased from 02/24
-repeat CT above and stable
-Neurosurgery saw in c/s and recommended Keppra 1g IV followed by 500mg IV Q12H
-Neurochecks
-Neuro following for dysarthria
-MRI brain pending
Other problems:
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
Essential hypertension: cont amlodipine
Hyperlipidemia: cont statin
GERD: cont PPI
Hypothyroidism
Memory loss
BPH: cont tamsulosin
Anxiety/depression: cont Lexapro
FULL/SCDs
Anticipated Discharge: Within 24 hours
Subjective/Interval History
-
Date of Service: March 21, 2024
No new complaints.
Objective Data
-
Labs:
Laboratory Results
03/21/24
04:37
WBC 6.1
Hgb 13.9
Hct 41.0
Plt Count 239
Sodium 140
Potassium 4.4
Chloride 103
Carbon Dioxide 23
BUN 21 H
Creatinine 1.0
Glucose 105 H
Calcium 9.7
Vital Signs:
Vital Signs
Temp Pulse Resp BP Pulse Ox
99.1 F 73 18 108/84 98
03/21/24 07:34 03/21/24 08:03 03/21/24 08:02 03/21/24 08:03 03/20/24 18:22
I&O
03/20/24 03/21/24 03/22/24
06:59 06:59 06:59
Intake Total 200 / 200 400 / 400
Output Total 300 / 300
Balance -100 / -100 400 / 400
--- NOTE | 2024-03-21 10:54 | PTCARENOTE ---
report given to 4w nurse pt taken to xray then to new room.
--- NOTE | 2024-03-21 13:16 | W.PN.UPDATE ---
Update Note
Progress Note Update
MRI of brain reviewed, which does not demonstrate acute infarction.
REcommend Continuation of Keppra on discharge.
If symptoms worsen or persist, and/or if CTH in 7-10 days demonstrates worsening, will need to discuss surgical evacuation with patient and family.
--- NOTE | 2024-03-21 15:01 | CM ---
Chart reviewed and case finisher met with patient and patient's daughter at bedside, case finisher discussed physical therapy recommendations and patient daughter stated that patient will do much better at home and would like patient to return to home
with visiting nurses, options review and patient has selected [facility], referral sent to [facility].
Plan; Home with daughter and [facility].
[2024-03-21] MEDS: FLOMAX 0.4 MG PO (21:38)
--- NOTE | 2024-03-22 01:04 | PTCARENOTE ---
At 2300, patient refused vital signs to be performed. At 0030, RN started NIH assessment. Patient became visibly more upset through out assessment and walked out of the room to the nurses station. Patient became aggressive and would not return to
bed, rishi childers called to assist patient to bed. Security assisted patient to bed and helped with therapeutic communication to calm the patient. Patient was calmed and redirected. 0000 NIH assessment completed. Nurse practitioner aware that patient
refused vital signs. Call triplett within reach and bed alarm intact.
--- NOTE | 2024-03-22 03:33 | W.PN.UPDATE ---
Update Note
Progress Note Update
Code purple called. RN stated patient got agitated and got OOB and would not return to bed. Patient seen and evaluated, school traffic guard at bedside.Patient was encouraged back to bed in a therapeutic manner. patient oriented, with mild confusion,
noted to be talking and joking calmly with the unarmed security officer. Patient seemed to be unhappy with tech taking VS and then neuro checks. Advised nursing of taking vitals and neuro-check around 5AM.
[2024-03-22] MEDS: SYNTHROID 150 MCG PO (05:24)
[2024-03-22 05:30] VITALS: BP 104/62
[2024-03-22 07:20] VITALS: BP 127/73
[2024-03-22] MEDS: LEXAPRO 10 MG PO (09:18)
[2024-03-22] MEDS: KEPPRA 500 MG IV (09:19)
[2024-03-22] MEDS: PROTONIX 40 MG PO (09:19)
[2024-03-22] MEDS: NORVASC 5 MG PO (09:19)
[2024-03-22] MEDS: CRESTOR 5 MG PO (09:19)
[2024-03-22 11:13] VITALS: BP 117/72
--- NOTE | 2024-03-22 13:45 | PTOTSP ---
Speech Language Pathology
Pt seen for dysphagia tx. Pt reported he manages regular solids at home and didn't want to eat the level 6 solids on meal tray at lunch. Seen with regular solids and thin liquids. Adequate mastication, bolus formation, and A-P transit noted with
no oral residue. No overt signs of aspiration.
Recommend:
(1) Upgrade to baseline diet of regular solids/thin liquids
(2) General aspiration precautions
(3) Meds as tolerated
(4) MATHEMATICS IMPROVEMENT TEACHER to sign off. Please reconsult as indicated
--- NOTE | 2024-03-22 14:52 | CM ---
Patient seen at bedside with physicians. Patient daughter also present. Patient originally admitted as OBS but changed to INP today and patient daughter completed IMM and form placed on chart. Patient daughter requested PT/OT to assess patient and
after assessment requested walker for discharge. Resident provided script and patient to go home with Patient requested [facility] for follow up. CM will check in with Liaison for [facility] and confirm ability to accept. Family to transport. CM will continue
to follow for discharge planning needs.
Plan; home with [facility]; walker
--- NOTE | 2024-03-22 15:24 | VNURNOTE ---
Home Health Liaison spoke with daughter Parul to discuss [facility] nurse/therapy, visits, schedule and homebound status. She is agreeable and understands that visits at home will be 2-3 x per week to assess and teach medical management. daughter is
aware that [facility] will contact them for start of care in 1-2 days after discharge from . [facility] referral accepted in [facility].
[2024-03-22 15:48] VITALS: BP 111/57
--- NOTE | 2024-03-22 16:44 | W.PN.HOSP.TC ---
Addendum entered and electronically signed by Ya Newell MD 03/22/24 19:37:
I saw and evaluated the patient independently. I reviewed the resident�s note and agree with findings and plan as documented by Dr. Greenberg.
GENERAL: well developed, well nourished, male in no apparent distress
HEENT: NC/AT--keeps left eye closed throughout evaluation
HEART: regular rate and rhythm, +S1, +S2
LUNGS : clear to auscultation bilaterally
ABDOM: soft, nontender, nondistended, + bowel sounds
EXT: no cyanosis, clubbing, or edema
NEUROLOGIC: grossly intact
Acute small subdural hemorrhage overlying larger chronic subdural fluid collection--with possible subarachnoid hemorrhage--apprec neuro and neurosurgery--seen by PT/OT--OK for home--cont keppra
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
Essential hypertension-- cont amlodipine
Hyperlipidemia-- cont statin
GERD-- cont PPI
Hypothyroidism--cont synthroid
Memory loss--likely from 's on top of SDH/SAH
BPH-- cont tamsulosin
Anxiety/depression-- cont Lexapro
code status--FULL CODE
DVT proph
Original Note:
Today's Communication/Plan
-
Discharge home with visiting nurse
Continue Keppra 500 mg twice daily, follow-up with PCP for more prescription
Assessment / Plan
Assessment / Plan
89-year-old man presented with intermittent word finding difficulties. He was found to have a left-sided subdural hematoma after he sustained 2 falls in mid February. His most recent imaging demonstrates chronic finding of subdural collection, with
a small acute component.
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
MRI Brain 03/21/24: There is a left extra-axial, holohemispheric mixed density collection consistent with acute on chronic subdural hematoma with associated mild mass effect and 4 mm rightward midline shift. This is overall similar in appearance to
prior CT. Additionally there is underlying sulcal FLAIR nonsuppression along the anterior left frontal lobe which likely represents associated small volume subarachnoid hemorrhage.
Global atrophy with sequelae of mild small vessel ischemic disease.
#Acute small subdural hemorrhage overlying larger chronic subdural fluid collection:
-CT scan shows mild amount of mass effect in the left cerebral hemisphere causing 5.3 mm [id number]-[id number] midline shift mildly increased from 02/24
-repeat CT above and stable
-Neurosurgery recommended Keppra 500mg Q12H
Other problems:
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
Essential hypertension: cont amlodipine
Hyperlipidemia: cont statin
GERD: cont PPI
Hypothyroidism
Memory loss
BPH: cont tamsulosin
Anxiety/depression: cont Lexapro
FULL/SCDs
Anticipated Discharge: Today
Subjective/Interval History
-
Date of Service: March 22, 2024
Interval events: No new complaints
Objective Data
-
Vital Signs:
Vital Signs
Temp Pulse Resp BP Pulse Ox
98.4 F 67 16 111/57 96
03/22/24 15:48 03/22/24 15:48 03/22/24 15:48 03/22/24 15:48 03/22/24 15:48
I&O
03/21/24 03/22/24 03/23/24
06:59 06:59 06:59
Intake Total 400 / 400 440 / 440
Balance 400 / 400 440 / 440
Review of Systems
-
History Source: Patient
Constitutional: Reports No Symptoms
Respiratory: Reports No Symptoms
Cardiac: Reports No Symptoms
Abdomen/GI: Reports No Symptoms
Skin: Reports No Symptoms
Neuro: Reports No Symptoms
Physical Exam
-
General: Well Nourished and No Apparent Distress
Respiratory: Clear to Auscultation
Cardiac: Regular Rhythm and S1/S2
GI: Soft and Nontender
Skin: Warm and Dry
Neuro: Awake, Alert, Oriented, No Motor Deficits, Central Nerve's Intact and No Sensory Deficits
Psych: Calm
Data Reviewed
-
CT Scan: Report Reviewed by me and Discussed with Physician
MRI: Report Reviewed by me, Discussed with Physician and Discussed with Patient
Labs: Labs Reviewed by me, Discussed with Physician and Discussed with Patient
--- NOTE | 2024-03-22 17:29 | W.DCSUMMARY ---
Addendum entered and electronically signed by Ya Newell MD 03/22/24 20:31:
Read, reviewed, and agree. See same day progress note for additional details. Time spent coordinating care, DC planning, review of DC plan of care with resident, transition of care, review of records in EMR, med rec, consults, notes, d/w
consultants, nursing, family, and CM = 42 minutes
Patient was seen by physical and occupational therapy who recommended Home Health for VN, PT/OT.
Original Note:
Discharge Summary
Discharge Data
Date of Admission: 03/22/24
Date of Discharge: 03/22/24
Total time spent discharging patient (in min): 42
-
Pending Results: No
Hospital Course
Discharging Physician : Skyler Greenberg MD ; Ya Newell MD
Disposition : Home with VN
Primary care physician : Hai Lee MD
Principal Discharge diagnosis : Acute small subdural hemorrhage overlying larger chronic subdural fluid collection
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
Hospital Course : 89-year-old man presented with intermittent word finding difficulties. He was found to have a left-sided subdural hematoma after he sustained 2 falls in mid February. His most imaging demonstrated chronic finding of subdural
collection, with a small acute component. He was admitted for observation which was later switched to inpatient admission. Neuro surgery was consulted and he was started on IV Keppra 1 g 1 day and 500 mg twice daily by mouth after that. He was
monitored closely with repeated neurochecks. No neurological deficits at this time stop. MRI brain was performed, did not demonstrate any acute infarction. Neurosurgery recommended continuation of Keppra on discharge. Patient being discharged
today to home with visiting nurse. Advised to follow-up with the family doctor within 1 week and continue Keppra 500 mg twice daily.
Important imaging findings : Head CT 03/19/24 CT HEAD STROKE ALERT W/o ContIMPRESSION:
1. SMALL ACUTE SUBDURAL HEMORRHAGE overlying the lateral convexity of the left frontal lobe which is superimposed upon a larger CHRONIC SUBDURAL FLUID COLLECTION. Mild amount of mass effect on the left cerebral hemisphere causing 5.3 mm left to
right midline shift which appears to have mildly increased since 02/25/2024.
2. No CT evidence for acute transcortical infarct.
3. 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
4. Mild diffuse cerebral and cerebellar volume loss.
ASPECT score: 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
Brain MRI:
IMPRESSION:
There is a left extra-axial, holohemispheric mixed density collection consistent with acute on chronic subdural hematoma with associated mild mass effect and 4 mm rightward midline shift. This is overall similar in appearance to prior CT.
Additionally there is underlying sulcal FLAIR nonsuppression along the anterior left frontal lobe which likely represents associated small volume subarachnoid hemorrhage.
Global atrophy with sequelae of mild small vessel ischemic disease.
Orbital Xray: 03/21/24
No radiopaque intraorbital foreign body seen. Small calcification within the anterior midline frontal soft tissues.
Discharge Plan
-
Patient Disposition: Home with Home Care
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
anxiety/depression
Condition: Good
Diet: No restrictions
Activity: As tolerated
Additional Activity: Script provided for Rolling walker
Driving Restrictions: As prior to admission
Bathing Restrictions: None
Other Services: VN
Referrals:
Hai Lee MD [Family Provider] - in less than 1 week
Additional Discharge Medication Instructions: Take levetiracetam (Keppra) 500 mg tablet-1 tablet by mouth twice daily.(Follow-up with family doctor for future prescription)
Resume/continue home medications.
Prescriptions:
New
levetiracetam [Keppra] 500 mg tablet
500 mg PO Q12H 30 Days Qty: 60 0RF
Rx Instructions:
Take 1 tablet by mouth twice daily.
Continued
pantoprazole 40 mg tablet,delayed release (DR/EC)
40 mg PO DAILY
rosuvastatin 5 mg tablet
5 mg PO DAILY
levothyroxine [Synthroid] 150 mcg Tablet
150 mcg PO DAILY@06
amlodipine [Norvasc] 5 mg tablet
5 mg PO DAILY Qty: 30 0RF
escitalopram oxalate [Lexapro] 10 mg Tablet
10 mg PO DAILY
tamsulosin [Flomax] 0.4 mg Capsule
0.4 mg PO HS
Discharge Orders:
Discharge Patient (As Directed); Ordered 03/22/24
Ordered By: Skyler Greenberg
Discharge Date and Time
Print Language: TURKMEN
== END 2024-03-22 18:06 | disposition home health service (06) | DRG 83 ==
LOC: 4 WEST ACU 07:49
PROVIDERS: ADMITTING PHYSICIAN Hospitalist; ATTENDING PHYSICIAN Internal Medicine; CONSULT PHYSICIAN Internal Medicine Critical Care Medicine; CONSULT PHYSICIAN Neurological Surgery; EMERGENCY PHYSICIAN Emergency Medicine; FAMILY PHYSICIAN Family Medicine
DX: S06.5XAA Traumatic subdural hemorrhage with loss of consciousness status unknown, initial encounter (principal); F03.93 Unspecified dementia, unspecified severity, with mood disturbance; R47.01 Aphasia; F03.94 Unspecified dementia, unspecified severity, with anxiety; E03.9 Hypothyroidism, unspecified; F32.A Depression, unspecified; I10 Essential (primary) hypertension; H54.62 Unqualified visual loss, left eye, normal vision right eye; H53.8 Other visual disturbances; W06.XXXA Fall from bed, initial encounter; W22.09XA Striking against other stationary object, initial encounter; Y92.003 Bedroom of unspecified non-institutional (private) residence as the place of occurrence of the external cause; N40.0 Benign prostatic hyperplasia without lower urinary tract symptoms; E78.5 Hyperlipidemia, unspecified; K21.9 Gastro-esophageal reflux disease without esophagitis; Z91.81 History of falling; Z79.890 Hormone replacement therapy; Z79.899 Other long term (current) drug therapy
CPT/HCPCS: 70030; 70450; 70551; 80048; 80053; 82077; 82962; 83735; 84100; 85025; 85027; 85610; 92523; 92526; 92610; 93005; 96374; 97116; 97163; 97167; 97530; 97535; 99284

== ENCOUNTER → 2024-03-29 07:17 | Outpatient (REF) | payer MEDICARE, BC, SELFPAY | LOC: HWRAD 07:17 | PROVIDERS: ATTENDING PHYSICIAN Physician Assistant Medical; FAMILY PHYSICIAN Family Medicine; REFERRING PHYSICIAN Neurological Surgery | DX: S06.5XAA Traumatic subdural hemorrhage with loss of consciousness status unknown, initial encounter (principal) | CPT/HCPCS: 70450 ==

== ENCOUNTER → 2024-05-18 08:45 | Outpatient (REF) | payer MEDICARE, BC, SELFPAY | LOC: RAD 08:45 | PROVIDERS: ATTENDING PHYSICIAN Physician Assistant Medical; FAMILY PHYSICIAN Family Medicine | DX: S06.5XAA Traumatic subdural hemorrhage with loss of consciousness status unknown, initial encounter (principal) | CPT/HCPCS: 70450 ==